=== PATIENT | male | born 1955 | race Caucasian/White ===

== ENCOUNTER 2023-04-01 13:02 | Emergency (ER) | payer MEDICARE, OTHER, SELFPAY ==
[2023-04-01 13:12] VITALS: BP 146/87
[2023-04-01 13:28] LABS: % Basophils 1.6 % (0-2); % Eosinophils 4.3 % (0-6); % Lymphocytes 30.5 % (20.5-51.1); % Monocytes 13.4 % (1.7-9.3); % Neutrophils 50.2 % (42.2-75.2); Absolute Basophils 0.1 10^3/uL (0-0.2); Absolute Eosinophils 0.2 10^3/uL (0-0.7); Absolute Lymphocytes 1.7 10^3/uL (1.2-3.4); Absolute Monocytes 0.8 10^3/uL (0.1-0.6); Absolute Neutrophils 2.8 10^3/uL (1.4-6.5); Hematocrit 41.6 % (39.0-52.0); Hemoglobin 14.9 g/dL (13.0-18.0); Mean Corp Hgb Conc. 35.8 g/dL (33.0-37.0); Mean Corpuscular Hgb 31.7 pg (27.0-31.0); Mean Corpuscular Volume 88.5 fL (80.0-94.0); Mean Platelet Volume 9.8 fL (7.4-10.4); Nucleated Red Blood Cells % 0 % (-); Platelet Count 213 10^3/uL (130-400); Red Cell Dist. Width 13.7 % (11.5-14.5); White Blood Cell Count 5.6 10^3/uL (4.8-10.8)
[2023-04-01 13:39] LABS: ALT (SGPT) 28 U/L (0-50); AST (SGOT) 26 U/L (17-59); Albumin 3.9 g/dl (3.5-5.0); Alkaline Phosphatase 83 U/L (38-126); Blood Urea Nitrogen 18 mg/dl (9-20); Calcium 9.3 mg/dl (8.4-10.2); Carbon Dioxide 25 mmol/L (22-30); Chloride 106 mmol/L (98-107); Glucose 124 mg/dl (70-99); Potassium 4.1 mmol/L (3.5-5.1); Sodium 135 mmol/L (135-145); Total Bilirubin 0.6 mg/dl (0.2-1.3); Total Protein 6.8 g/dl (6.3-8.2); eGFR > 60.00
[2023-04-01 13:47] VITALS: BMI 32.4
[2023-04-01 13:50] LABS: NT-proBNP 88.7 pg/ml; Troponin I < 0.012 ng/ml
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
[2023-04-01 15:46] VITALS: BP 144/88
[2023-04-01] MEDS: LOW STRENGTH ASPIRIN 324 MG PO (15:47)
[2023-04-01 16:30] LABS: Troponin I < 0.012 ng/ml
[2023-04-01 17:00] VITALS: BP 148/94
== END 2023-04-01 17:33 | disposition home or self-care (01) ==
LOC: EMR 13:02
PROVIDERS: Emergency Medicine; CONSULT PHYSICIAN Internal Medicine Cardiovascular Disease; EMERGENCY PHYSICIAN Emergency Medicine; FAMILY PHYSICIAN Internal Medicine
DX: R06.02 Shortness of breath (principal); R00.2 Palpitations; R07.89 Other chest pain; R42 Dizziness and giddiness; M54.9 Dorsalgia, unspecified; F41.9 Anxiety disorder, unspecified; E78.00 Pure hypercholesterolemia, unspecified; M51.36 Other intervertebral disc degeneration, lumbar region; I10 Essential (primary) hypertension; I34.0 Nonrheumatic mitral (valve) insufficiency; G89.29 Other chronic pain; M10.9 Gout, unspecified; K57.92 Diverticulitis of intestine, part unspecified, without perforation or abscess without bleeding; F17.290 Nicotine dependence, other tobacco product, uncomplicated; Z79.82 Long term (current) use of aspirin
CPT/HCPCS: 99285; 71046; 80053; 83880; 84484; 85025; 93005; 93306

== ENCOUNTER 2023-04-16 09:16 | Emergency (ER) | payer MEDICARE, OTHER, SELFPAY ==
[2023-04-16 09:23] VITALS: BP 141/92
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
[2023-04-16 10:32] LABS: % Basophils 1.3 % (0-2); % Eosinophils 3.3 % (0-6); % Immature Granulocytes 0.2 % (0-0.5); % Lymphocytes 21.8 % (20.5-51.1); % Monocytes 8.9 % (1.7-9.3); % Neutrophils 64.5 % (42.2-75.2); Absolute Basophils 0.1 10^3/uL (0-0.2); Absolute Eosinophils 0.2 10^3/uL (0-0.7); Absolute Lymphocytes 1.2 10^3/uL (1.2-3.4); Absolute Monocytes 0.5 10^3/uL (0.1-0.6); Absolute Neutrophils 3.5 10^3/uL (1.4-6.5); Hematocrit 41.6 % (39.0-52.0); Mean Corp Hgb Conc. 36.1 g/dL (33.0-37.0); Mean Corpuscular Hgb 31.7 pg (27.0-31.0); Mean Corpuscular Volume 87.9 fL (80.0-94.0); Mean Platelet Volume 9.7 fL (7.4-10.4); Nucleated Red Blood Cells % 0 % (-); Platelet Count 246 10^3/uL (130-400); Red Blood Cell Count 4.73 10^6/uL (4.70-6.10); Red Cell Dist. Width 13.7 % (11.5-14.5); White Blood Cell Count 5.4 10^3/uL (4.8-10.8)
[2023-04-16 10:48] LABS: ALT (SGPT) 30 U/L (0-50); AST (SGOT) 29 U/L (17-59); Albumin 4.1 g/dl (3.5-5.0); Alkaline Phosphatase 98 U/L (38-126); Blood Urea Nitrogen 16 mg/dl (9-20); Calcium 9.3 mg/dl (8.4-10.2); Carbon Dioxide 24 mmol/L (22-30); Chloride 105 mmol/L (98-107); Glucose 122 mg/dl (70-99); Potassium 4.1 mmol/L (3.5-5.1); Sodium 136 mmol/L (135-145); Total Bilirubin 0.9 mg/dl (0.2-1.3); eGFR > 60.00
[2023-04-16 10:58] LABS: NT-proBNP 22.9 pg/ml; Troponin I < 0.012 ng/ml
[2023-04-16 11:00] VITALS: BP 129/85
[2023-04-16 11:49] VITALS: BP 125/81
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
[2023-04-16 12:33] VITALS: BP 136/89
== END 2023-04-16 13:15 | disposition home or self-care (01) ==
LOC: EMR 09:16
PROVIDERS: Nurse Practitioner; EMERGENCY PHYSICIAN Emergency Medicine; FAMILY PHYSICIAN Internal Medicine
DX: R07.89 Other chest pain (principal); R06.00 Dyspnea, unspecified; I10 Essential (primary) hypertension; E78.00 Pure hypercholesterolemia, unspecified; I38 Endocarditis, valve unspecified; F41.8 Other specified anxiety disorders; I34.0 Nonrheumatic mitral (valve) insufficiency; K21.9 Gastro-esophageal reflux disease without esophagitis; N40.0 Benign prostatic hyperplasia without lower urinary tract symptoms; F17.290 Nicotine dependence, other tobacco product, uncomplicated; Z86.73 Personal history of transient ischemic attack (TIA), and cerebral infarction without residual deficits
CPT/HCPCS: 99283; 71046; 80053; 83880; 84484; 85025; 93005

== ENCOUNTER 2023-04-21 05:50 | Day surgery (SDC) | payer MEDICARE, OTHER, SELFPAY ==
[2023-04-21] VITALS (8 sets, daily range): BP systolic 118–155; BP diastolic 81–94; BMI 32.1
[2023-04-21] MEDS: LOW STRENGTH ASPIRIN 81 MG PO (06:50)
[2023-04-21] MEDS: NSS 287 ML IV (06:59)
--- NOTE | 2023-04-21 08:15 | ITS.CL.CATH ---
Director Of Scientific Research - Catheterization
Cardiac Catheterization
Procedure Report:
CARDIAC CATHETERIZATION REPORT
Date of Procedure: 04/21/2023
Referring:Antonio Mcintyre MD
HEMODYNAMIC DATA
AO: 143/88
LV: 143/20
LEFT VENTRICULOGRAPHY: Normal left ventricular wall motion with EF 64%. There is 3+ (moderate to severe) mitral regurgitation
CORONARY ANGIOGRAPHY
Dominance: Right
Left Main: Cloacal
LAD: Normal
Circumflex: Normal
RCA: Normal dominant vessel
Closure Device: None-the procedure was performed via the right radial artery. The Claus's test was normal prior to the procedure.
Radiation (mGy): 225
DAP (cm2.Gy): 16.3
Fluoroscopy time: 2.7 minutes
CONCLUSIONS
1: Mildly elevated LVEDP
2: Normal left ventricular function with EF 64%
3. Moderate to severe mitral regurgitation
4. Normal coronary arteries
5. This patient has exertional dyspnea as his primary complaint. TTE suggests mild to moderate eccentric mitral regurgitation. Left ventriculography suggests moderate to severe mitral regurgitation. A BRIAN will be needed to further assess the
degree of mitral regurgitation and decide whether corrective mitral valve surgery is appropriate
Copy to: Antonio Mcintyre MD, Jesus Manuel Rodriguez DO
Romeo Alvarado MD, [facility], [facility]
== END 2023-04-21 11:00 | disposition home or self-care (01) ==
LOC: CATH 05:50
PROVIDERS: ATTENDING PHYSICIAN Internal Medicine Cardiovascular Disease; FAMILY PHYSICIAN Internal Medicine; OTHER PHYSICIAN Internal Medicine Cardiovascular Disease
DX: I34.0 Nonrheumatic mitral (valve) insufficiency (principal); R06.09 Other forms of dyspnea; I10 Essential (primary) hypertension; K21.9 Gastro-esophageal reflux disease without esophagitis
CPT/HCPCS: 93458; C1894; Q9967

== ENCOUNTER → 2023-05-03 08:30 | Day surgery (SDC) | payer MEDICARE, OTHER, SELFPAY ==
[2023-05-03 09:30] VITALS: BMI 32.1
== END ==
LOC: CATH 08:30
PROVIDERS: ATTENDING PHYSICIAN Internal Medicine Cardiovascular Disease; FAMILY PHYSICIAN Internal Medicine
DX: I34.0 Nonrheumatic mitral (valve) insufficiency (principal); I10 Essential (primary) hypertension; R06.09 Other forms of dyspnea; Z86.73 Personal history of transient ischemic attack (TIA), and cerebral infarction without residual deficits; Z87.891 Personal history of nicotine dependence; Z79.82 Long term (current) use of aspirin
CPT/HCPCS: 93312; 93320; 93325

== ENCOUNTER → 2023-05-09 13:01 | Outpatient (REF) | payer MEDICARE, OTHER, SELFPAY | LOC: RAD 13:01 | PROVIDERS: ATTENDING PHYSICIAN Thoracic Surgery (Cardiothoracic Vascular Surgery); FAMILY PHYSICIAN Internal Medicine | DX: I34.0 Nonrheumatic mitral (valve) insufficiency (principal) | CPT/HCPCS: 71275; 74174; Q9967 ==

== ENCOUNTER 2023-05-17 04:57 | Inpatient (IN) | payer MEDICARE, OTHER, SELFPAY ==
[2023-05-10 12:13] VITALS: BMI 32.0
[2023-05-10 12:41] LABS: % Basophils 1.7 % (0-2); % Immature Granulocytes 0.2 % (0-0.5); % Lymphocytes 27.5 % (20.5-51.1); % Monocytes 12.2 % (1.7-9.3); % Neutrophils 52.4 % (42.2-75.2); Absolute Basophils 0.1 10^3/uL (0-0.2); Absolute Eosinophils 0.3 10^3/uL (0-0.7); Absolute Lymphocytes 1.4 10^3/uL (1.2-3.4); Absolute Monocytes 0.6 10^3/uL (0.1-0.6); Absolute Neutrophils 2.7 10^3/uL (1.4-6.5); Hematocrit 43.5 % (39.0-52.0); Hemoglobin 15.4 g/dL (13.0-18.0); Mean Corp Hgb Conc. 35.4 g/dL (33.0-37.0); Mean Corpuscular Hgb 31.8 pg (27.0-31.0); Mean Corpuscular Volume 89.7 fL (80.0-94.0); Mean Platelet Volume 9.6 fL (7.4-10.4); Nucleated Red Blood Cells % 0 % (-); Platelet Count 240 10^3/uL (130-400); Red Blood Cell Count 4.85 10^6/uL (4.70-6.10); Red Cell Dist. Width 13.6 % (11.5-14.5); White Blood Cell Count 5.2 10^3/uL (4.8-10.8)
[2023-05-10 12:42] LABS: Urine Albumin 1+ (Neg - Trace); Urine Bilirubin Negative (Negative); Urine Character Clear (Clear); Urine Color Yellow; Urine Glucose Negative (Negative); Urine Ketone Negative (Negative); Urine Leukocyte Trace (Negative); Urine Nitrite Negative (Negative); Urine Occult Blood 3+ (Negative); Urine Urobilinogen Negative (Neg - 1+)
[2023-05-10 12:51] LABS: Urine Mucus Few; Urine Squamous Cell 0-2 /LPF (Few)
[2023-05-10 12:52] LABS: Urine Bacteria Moderate (Negative); Urine White Cell 0-2 /HPF (0-5)
[2023-05-10 12:59] LABS: APTT 30.3 Sec (23.4-35.0); INR 0.99; PT 12.9 Sec (11.4-14.6)
[2023-05-10 13:42] LABS: ALT (SGPT) 37 U/L (0-50); AST (SGOT) 29 U/L (17-59); Albumin 4.4 g/dl (3.5-5.0); Alkaline Phosphatase 91 U/L (38-126); Blood Urea Nitrogen 22 mg/dl (9-20); Calcium 9.9 mg/dl (8.4-10.2); Carbon Dioxide 25 mmol/L (22-30); Chloride 103 mmol/L (98-107); Estimated Creatinine Clearance 68 ml/min; Glucose 103 mg/dl (70-99); Potassium 4.6 mmol/L (3.5-5.1); Sodium 136 mmol/L (135-145); Total Bilirubin 0.7 mg/dl (0.2-1.3); Total Protein 7.2 g/dl (6.3-8.2); eGFR > 60.00
[2023-05-10 13:56] LABS: Glycohemoglobin (HgbA1c) 5.7 % (4.0-5.6)
[2023-05-17] VITALS (20 sets, daily range): BP systolic 79–141; BP diastolic 61–90; BMI 32.0
[2023-05-17] MEDS: BACTROBAN 2% OINTMENT 1 APPLIC NASAL ×2 (06:15→20:30)
[2023-05-17] MEDS: MAGNESIUM OXIDE 500 MG PO (06:16)
[2023-05-17] MEDS: PROTONIX 40 MG PO (06:16)
[2023-05-17] MEDS: LOPRESSOR 25 MG PO (06:16)
--- NOTE | 2023-05-17 06:20 | PTCARENOTE ---
Patient arrived to room 2261 with security strategist. Patient A+A+Ox3. No neurological deficits noted. Steady gait. Patient with no c/o pain or discomfort. Patient confirmed NPO after midnight. Patient confirmed taking 4% Chlorhexidine shower
last night and this morning. Patient clipped and prepped per protocol. G wipes. Admission questions and medication reconciliation completed. Pre-Op medications administered. I.S. 2000 ml. Heart pillow purpose explained. Dr. Alanis arrived and
spoke with patient. fiscal assistant to CVOR.
--- NOTE | 2023-05-17 06:35 | W.CVOR.SURPR ---
CVOR Surgeon Immed Pre Op
-
I have examined this patient prior to performance of the scheduled procedure.
The patient's condition is unchanged from the time of the dictated/written History and
Physical and the patient is able to undergo the scheduled procedure.
HP MV Repair. Will manage PAIGE at time of surgery. Denies an official diagnosis of atrial fibrillation but does state that he felt short rapid palpitations.
[id number] Score for Atrial Fibrillation Stroke Risk
5 points
Stroke risk was 7.2% per year in >90,000 patients (the [place] Atrial Fibrillation Cohort Study) and 10.0% risk of stroke/TIA/systemic embolism.
INPUTS:
Age �> 1 = 65-74
Sex �> 0 = Male
CHF history �> 1 = Yes
Hypertension history �> 1 = Yes
Stroke/TIA/thromboembolism history �> 2 = Yes
Vascular disease history (prior ME, peripheral artery disease, or aortic plaque) �> 0 = No
Diabetes history �> 0 = No
[2023-05-17 07:15] LABS: ACT+ - POC 101 Seconds (82-134)
[2023-05-17 07:19] LABS: B.E. - POC -2.8 mmol/L; Glucose - POC 104 mg/dl (65-99); HCO3 - POC 23 mmol/L (21-29); Hematocrit - POC 40 % PCV (42-52); Hemodilution- POC Yes; Hemoglobin Calculated - POC 13.6; Ionized Calcium - POC 1.22 mmol/L (1.12-1.27); O2 Saturation %Calculated-POC 97.7 5 (92-96); PCO2 - POC 45 mmHg (35-45); PO2 - POC 108 mmHg (80-100); Potassium - POC 3.6 mmol/L (3.6-5.0); Sodium - POC 141 mmol/L (135-145); pH - POC 7.33 (7.35-7.45)
[2023-05-17 07:36] LABS: Urine Albumin 1+ (Neg - Trace); Urine Bilirubin Negative (Negative); Urine Character Clear (Clear); Urine Color Yellow; Urine Glucose Negative (Negative); Urine Ketone Negative (Negative); Urine Leukocyte Negative (Negative); Urine Nitrite Negative (Negative); Urine Occult Blood 3+ (Negative); Urine Urobilinogen Negative (Neg - 1+)
[2023-05-17 08:02] LABS: Urine Hyaline Cast 0-2 /LPF (0-2)
[2023-05-17 08:03] LABS: Urine Bacteria Few (Negative)
--- NOTE | 2023-05-17 08:04 | W.PN.CD ---
Today's Communication / Plan
-
Surgery this morning.
Impression / Plan
-
Impression/Plan: 68 y/o male with HTN, TIA and severe primary mitral regurgitation admitted for elective mitral valve repair and LAAL (+/- MAZE).
#Primary mitral regurgitation
-For MV repair today.
-Anticipate routine postoperative management.
#Hypertension
-Chronic, stable.
-Monitor post-op.
#TIA
-Likely LAAL, +- MAZE today.
-Resume aspirin.
-No definitive evidence of PAF.
Subjective/Interval History:
In surgery this morning.
DATA:
CT C/A/P, 05/09/2023:
IMPRESSION:
1. No significant calcification of the mitral valve. Aortic valve is tricuspid.
2. Minimal left basilar subsegmental atelectasis, otherwise clear lungs.
3. Mild calcification of the proximal LAD. Please correlate with symptoms of and risk factors for coronary artery disease, with further workup as clinically appropriate.
4. Colonic diverticulosis without evidence of diverticulitis.
05/03/2023:
CONCLUSIONS
Normal LV size and function with no regional wall motion abnormalities.
Estimated LV EF of 60-65%.
No LVH.
Normal right ventricular size and function.
Prolapse with likely partial flail P1/P2 scallop of the posterior leaflet with
severe eccentric anteriorly directed regurgitation with Coanda effect.
Systolic flow reversal (suggestive of severe MR) in the pulmonary veins.
Compared to prior from April 01, 2023, mitral regurgitation is better
visualized on today's study and is likely severe with systolic flow reversal
seen in the pulmonary veins.
Cardiac Catheterization, 04/21/2023:
CORONARY ANGIOGRAPHY
Dominance: Right
Left Main: Cloacal
LAD: Normal
Circumflex: Normal
RCA: Normal dominant vessel
CONCLUSIONS
1: Mildly elevated LVEDP
2: Normal left ventricular function with EF 64%
3. Moderate to severe mitral regurgitation
4. Normal coronary arteries
Physical Exam
Vital Signs/Labs
Vital Signs
Temp Pulse Resp BP Pulse Ox
37.0 C 89 16 134/89 97
05/17/23 05:34 05/17/23 06:16 05/17/23 05:34 05/17/23 06:16 05/17/23 05:34
05/15/23 05/16/23 05/17/23
11:59 11:59 11:59
Actual Weight 95.3 kg
05/10/23 12:25
05/10/23 12:25
PT 12.9 Sec (11.4-14.6) 05/10/23 12:25
INR 0.99 05/10/23 12:25
APTT 30.3 Sec (23.4-35.0) 05/10/23 12:25
Physical Exam
Exam deferred.
Data Reviewed
-
Date of Service: May 17, 2023
Medical Decision Making: Reviewed Test Results, Independent Historian Assessment, Test Interpretation and Review of Case with other Provider
EKG: Tracing Personally Visualized and interpreted and Report Reviewed by me
Echo: Report Reviewed by me
X-Ray/CT/US/MRI/NUC/PET: Image Personally Visualized and interpreted and Report Reviewed by me
Medical Tests (PFT, Pathology etc): Report Reviewed by me
Labs: Labs Reviewed by me
Old Records: Reviewed
[2023-05-17 08:43] LABS: ACT+ - POC 794 Seconds (82-134)
[2023-05-17 09:07] LABS: B.E. - POC 1.3 mmol/L; Glucose - POC 125 mg/dl (65-99); HCO3 - POC 25 mmol/L (21-29); Hematocrit - POC 31 % PCV (42-52); Hemodilution- POC Yes; Hemoglobin Calculated - POC 10.4; Ionized Calcium - POC 1.01 mmol/L (1.12-1.27); O2 Saturation %Calculated-POC 99.9 5 (92-96); PCO2 - POC 36 mmHg (35-45); PO2 - POC 269 mmHg (80-100); Potassium - POC 5.3 mmol/L (3.6-5.0); Sodium - POC 135 mmol/L (135-145); pH - POC 7.45 (7.35-7.45)
[2023-05-17 09:21] LABS: ACT+ - POC 920 Seconds (82-134)
[2023-05-17 09:42] LABS: B.E. - POC -0.7 mmol/L; Glucose - POC 164 mg/dl (65-99); HCO3 - POC 25 mmol/L (21-29); Hematocrit - POC 37 % PCV (42-52); Hemodilution- POC Yes; Hemoglobin Calculated - POC 12.6; Ionized Calcium - POC 1.06 mmol/L (1.12-1.27); O2 Saturation %Calculated-POC 99.6 5 (92-96); PCO2 - POC 45 mmHg (35-45); PO2 - POC 183 mmHg (80-100); Potassium - POC 5.7 mmol/L (3.6-5.0); Sodium - POC 135 mmol/L (135-145); pH - POC 7.36 (7.35-7.45)
[2023-05-17 09:50] LABS: ACT+ - POC 772 Seconds (82-134)
[2023-05-17 10:10] LABS: B.E. - POC -2.1 mmol/L; Glucose - POC 138 mg/dl (65-99); HCO3 - POC 22 mmol/L (21-29); Hematocrit - POC 36 % PCV (42-52); Hemodilution- POC Yes; Hemoglobin Calculated - POC 12.2; Ionized Calcium - POC 1.05 mmol/L (1.12-1.27); O2 Saturation %Calculated-POC 99.9 5 (92-96); PCO2 - POC 36 mmHg (35-45); PO2 - POC 352 mmHg (80-100); Potassium - POC 4.9 mmol/L (3.6-5.0); Sodium - POC 138 mmol/L (135-145)
[2023-05-17 10:18] LABS: ACT+ - POC 753 Seconds (82-134)
[2023-05-17 11:13] LABS: ACT+ - POC 107 Seconds (82-134)
[2023-05-17 11:16] LABS: B.E. - POC -6.2 mmol/L; Glucose - POC 133 mg/dl (65-99); HCO3 - POC 21 mmol/L (21-29); Hematocrit - POC 35 % PCV (42-52); Hemodilution- POC Yes; Hemoglobin Calculated - POC 11.8; Ionized Calcium - POC 1.28 mmol/L (1.12-1.27); O2 Saturation %Calculated-POC 95.7 5 (92-96); PCO2 - POC 50 mmHg (35-45); PO2 - POC 94 mmHg (80-100); Sodium - POC 140 mmol/L (135-145); pH - POC 7.24 (7.35-7.45)
--- NOTE | 2023-05-17 11:38 | CM ---
Chart reviewed. Patient is in the OR today. Plan is for the patient to return home with CT Transitional RN. MARC to follow
Patiient in seen PAT.
Met with Mr. Jackson in [facility]. He states prior to admission he resides alone in a one story home without any steps to enter. He states prior to admission he was independent with ambulation and adls. He states he does not have any DME in the
home. He states he has a prescription and uses [facility]. He states his niece resides on the property in another home. He states his brothers and sister maybe available to check on him when he goes home. The discharge plan is to return home
with family checking on him and a home visit by the Cardiothoracic Transitional Care Nurse when medically stable.
We reviewed pre-op and post-op routines. We reviewed the shower instructions. He has the soap, written instructions and the Cardiothoracic Surgery Educational Booklet. We also reviewed restrictions including lifting and driving restrictions. We
also discussed a home visit by the Cardiothoracic Transitional Care Nurse. He is agreeable to a home visit. The plan is for Mitral Valve repair on Wednesday, May 17, 2023.
--- NOTE | 2023-05-17 12:05 | PTCARENOTE ---
pt received into room 2261 s/p CVOR. pt intubated via ETT. POX 70's. STAGE RIGGER an CT PA at bedside. EET adjusted, POX improved to 95%. vent set to SIMV 16/600/100%/5/5. B/L breath sound present. CXR completed. pt sedated. SR/SB on monitor. EKG completed.
pt hypotensive. Levo gtt and Dobut gtt infusing. epicardial pacer turned on per CT PA, set to VVI 80, mA 10; rate now @ back up of 50. BP improved, Levo gtt weaned down. B/L radial and DP pulses palpable. heart tones clear. RIJ cordis and swan
intact w KVOs infusing. CI 1.89. PAPs ~30's/10's. CVP ~10. arizmendi catheter intact, draining clear yellow urine. CT x2 intact, connected to -20cm wall suction, drainage WNL, no air leak present. hypoactive bowel sounds present. insulin gtt infusing
per glycemic protocol. labs drawn and sent. elisha hugger placed for core temp 96.6. all surgical sites stable. see worklist for full assessment, VS, and interventions.
--- NOTE | 2023-05-17 12:19 | W.PN.CT.SURG ---
CT Surgery Operative Note
-
CARDIAC SURGERY OPERATIVE REPORT
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
Postoperative Diagnosis: Same
Procedure(s) Performed:
1. Right mini thoracotomy with right common femoral artery and vein cannulation under BRIAN guidance
2. Radical mitral valve repair (triangular section of P1 P2, imbrication of P1 to P2, 28 mm band anoplasty)
3. Placement temporary ventricular pacing wires
4. Trans esophageal echocardiography
5. Left atrial appendage exclusion with a 35 mm clip
Date of Surgery: 05/17/2023
Comorbidities:
1. Severe mitral valve insufficiency secondary to type II pathology
2. COPD, history of tobacco abuse
3. Hypertension
4. Hyperlipidemia
5. GERD
6. Morbidly obese
7. History of acute kidney dysfunction
8. BPH
9. Questionable history of TIA and FL
Attending Surgeon: Mauricio Alanis MD, MS
Assistants: Ketty Briggs PA-C (present and necessary for retraction, suctioning, exposure, suture management, wound closure, etc. under my direction)
Anesthesiology: Turner Dunn MD and Jeny Allen CRNA
Scrub and Circulating RNs: Brenda Wells, FRANKIE, Beatris Cleveland, FRANKIE
Slot Key Person: Leonila Aaron CCP
Anesthesia: GETA
EBL: per perfusion records
Products: None
CPB Time: 121 minutes
Aortic Cross Clamp Time: 83 minutes
Indication(s) for Procedures: This is a 68-year-old male who recent developed symptoms of fatigue and shortness of breath with light exertion. He has known mitral valve insufficiency secondary to flail/prolapse segment at P1 P2. Due to his
symptoms and severe mitral valve insufficiency, he met criteria for mitral valve repair. He accepted the risk for surgery and so we proceeded.
Mitral Valve Description: Relatively normal-appearing leaflets, flail segment at P1 P2 mildly dilated annulus, short anterior leaflet at approximately 24 mm.
Implants:
1. 28mm SCHROEDER PhysioFlex, SN [id number]
2. 35mm Pro 2 Clip, SN [id number]
Specimen:
None
Findings: His preoperative left ventricular action fraction was approximate 60% with no regional wall motion abnormalities. Following surgery his EF remained the same at approximately 50% although his RV was a little bit sluggish coming off
cardiopulmonary bypass. He also required significant recruitment from a pulmonary standpoint and was hypoxic. After some inotropic support and recruitment maneuvers his oxygen saturations improved. His left ventricular function postoperatively
was the same with no new regional wall motion abnormalities. His mitral valve was repaired by a triangular resection of a focal segment of prolapse and flail between P1 P2 and his annulus was reinforced with 10 nonpledgeted 2 Ethibond sutures or
knots and a 28 mm band annuloplasty. After coming off cardiopulmonary bypass there is no residual mitral valve insufficiency, no systolic anterior motion, and a mean gradient across the valve was 3 mmHg. His cardiac index on low-dose dobutamine
was 1.8-1.9 which had improved from 1.5 preoperatively. Of note, he likely has more severe COPD than anticipated, he required significant recruitment maneuvers intraoperatively. No products were given and he regained sinus rhythm after a short
period of ventricular pacing. The left atrial appendage was verified to be free of any thrombus or debris preoperatively and found to be totally occlusive postoperatively.
Description of Procedure: The patient was brought to the operating room and placed supine in the table with their right side bumped up and right arm down. Arterial and central access was performed by anesthesiology. The patient was prepped from chin
to toes in the typical sterile fashion. Trans esophageal evaluation of cardiac function and all valvular structures was conducted. Before commencing, a time out was performed by all members of the team. All were in agreement with the procedure and
laterality and I proceeded. A small right groin incision was made to expose the common femoral artery and vein. A total of 48,000 units of heparin was given. A 5-6 cm right lateral thoracotomy was performed over the 4th intercostal space verified by
visualization of the hilum. The common femoral artery and vein were cannulated under transesophageal guidance using open Seldinger technique. The arterial line was verified to have an appropriate bounce and pressure correlating with testing. Once
the ACT was above 400, retrograde autologous priming was done and we commenced cardiopulmonary bypass. Target core temperature was 34�C.
Carbon dioxide was used to flood the field. The course of the phrenic nerve was identified to prevent injury. The pericardium was opened and two stay sutures were placed to facilitate a ``pericardial table.�� The oblique sinus was developed followed
by the inter atrial groove. An antegrade root vent was inserted and secured with a pursestring suture. The pump flow and mean arterial pressure were lowered and an aortic cross clamp was applied to the ascending aorta. A total of 1.2L initial dose
of Antegrade cardioplegia was delivered. We had rapid electro myocardial quiescence at 300cc of cardioplegia. The ventricle was monitored for distension by echocardiogram during this time. The left atrium was incised and enlarged. A left atrial lift
retractor was placed. The mitral valve was inspected. The mitral valve was repaired as described above. The left atrial appendage was then accessed via the transverse sinus and sized to a 35 mm clip. The clip was deployed under direct vision
across the left atrial appendage and verified inside the atrium to be totally occlusive at the base. The left atriotomy was closed with 3-0 prolene in a running fashion leaving a ventricular vent in place to de-air. After filling the heart, the
vent was removed and the prolene was secured with a corknot. Unipolar ventricular pacing wire was placed on the base of the right ventricle. The patient was placed into Trendelenburg position and pump flows were lowered. The clamp was slowly
removed with the root vent turned on. De-airing maneuvers were performed. We started to rewarm with a target of 36.5�C.
As the heart recovered, the mitral valve and ventricular function were assessed under transesophageal echocardiogram. The LV vent and root vents were removed. Once weaning parameters were satisfactory, cardiopulmonary bypass flow was lowered until
we were off cardiopulmonary bypass the mitral valve was inspected again. All surgical sites were inspected for hemostasis and appeared appropriate. The lines were clamped and the arterial was relocated to the venous cannula to give back volume. A
test dose of protamine was delivered and patient was monitored for any adverse reactions followed by complete protamine dosing. The femoral vessels were decannulated and repaired as indicated. The pericardium was approximated with 2-0 ethibond
sutures secured with corknots. One 19F Emmanuel drain remained in the pleural space and one 24F emmanuel drain in the pericardium. There was an excellent palpable distal to the SYSTEM SAFETY MANAGER cannulation site. Local analgesia was injected to the thoracotomy. The rib
space was approximated with #2 ethibond suture. The incision was closed in layers in a running fashion.
All instrument, sponge, and needle counts were confirmed to be correct x 2 at the end of the operation. The patient was transferred to the cardiac intensive care unit in critical but stable condition.
I, Dr. Mauricio Alanis, was present, scrubbed for, and performed all critical elements of this procedure.
Mauricio Alanis MD, MS
Cardiothoracic Surgeon
[facility]
This dictation was created using the [employer] dictation system. Please excuse any grammatical, typographical, or 'sound alike' errors
[2023-05-17 12:26] LABS: Glucose - Point of Care 134 mg/dl (70-99)
[2023-05-17] MEDS: ANCEF 10 IV ×2 (12:32→12:33)
[2023-05-17 12:58] LABS: B.E. -5.7 mmol/L; HCO3 20.7 mmol/L (21-28); Ionized Calcium 1.16 mMOL/L (1.15-1.33); O2 Saturation % 82.6 % (94-98); PCO2 43 mmHg (35-48); Potassium 4.3 mMOL/L (3.5-5.1); Sodium 134 mMOL/L (136-145); pH 7.29 (7.35-7.45)
[2023-05-17 13:01] LABS: Hematocrit 33.7 % (39.0-52.0); Hemoglobin 11.8 g/dL (13.0-18.0); Platelet Count 163 10^3/uL (130-400)
[2023-05-17 13:03] LABS: PO2 53 mmHg (83-108)
[2023-05-17 13:05] LABS: Glucose - Point of Care 127 mg/dl (70-99)
[2023-05-17] MEDS: NSS 500 IV (13:07)
[2023-05-17] MEDS: CYMBALTA DELAYED RELEASE PO ×3 (13:07→20:38)
[2023-05-17] MEDS: LIPITOR PO (13:07)
[2023-05-17] MEDS: NEURONTIN PO ×2 (13:07→16:07)
[2023-05-17] MEDS: VITAMIN C PO (13:08)
[2023-05-17] MEDS: NOVOLOG FLEXPEN SC ×2 (13:08→16:08)
[2023-05-17 13:13] LABS: APTT 34.4 Sec (23.4-35.0)
[2023-05-17 13:19] LABS: Blood Urea Nitrogen 21 mg/dl (9-20); Estimated Creatinine Clearance 58 ml/min; Glucose 129 mg/dl (70-99); Magnesium 3.3 mg/dl (1.6-2.3)
--- NOTE | 2023-05-17 13:33 | W.PN.UPDATE ---
Update Note
Progress Note Update
S/P radical mitral valve repair (triangular section of P1 P2, imbrication of P1 to P2, 28 mm band anoplasty)
EKG abnormal (transient ST elevation and 2:1 heart block) but was performed during hypoxia.
Now hemodynamically stable on dobutamine 0.3. Update EKG.
[2023-05-17 13:43] LABS: HCO3 19.8 mmol/L (21-28); Ionized Calcium 1.15 mMOL/L (1.15-1.33); O2 Saturation % 96.9 % (94-98); PCO2 35 mmHg (35-48); PO2 79 mmHg (83-108); Potassium 4.7 mMOL/L (3.5-5.1); Sodium 135 mMOL/L (136-145); pH 7.36 (7.35-7.45)
[2023-05-17 13:46] LABS: Mixed Venous O2 Saturation 50.5 %
[2023-05-17 14:04] LABS: Glucose - Point of Care 119 mg/dl (70-99)
[2023-05-17] MEDS: TYLENOL PO (14:20)
--- NOTE | 2023-05-17 14:27 | W.PN.UPDATE ---
Update Note
Progress Note Update
68 y/o male with progressive SOB presented on 05/16 for elective MVrepair with Dr. Alanis.
IV fluids: 2200
U.O.:� 200
UF:� 4100
Blood:� None
Wires:� V-wires
Inotropes:� Dobutamine
Pressors:� Levophed
Sedatives:� Precedex
�
NEURO: sedated on precedex, pupils +3mm B/L
RESP: #8OT @24 16/500/100%/8 Lungs clear B/L. 2 mediastinal (5)and pleural (15) chest tubes to -20cm suction. Sanguineous drainage
CV: RRR +S1, S2, no S3, no�rub, no murmur. Dermabond to median sternotomy. RIJ w/Bessemer locked @ 45cm. PA 45/22; CVP 11; C.O 3.8/CI 1.8
ABD: round, soft, no BS
EXT: no edema, +2/4 DP pulses B/L, no femoral bruit,
: Soriano with clear yellow urine
�
A/P: POD #0 s/p Radical mitral valve repair (triangular section of P1 P2, imbrication of P1 to P2, 28 mm band anoplasty)
BRIAN: EF�55-60%
- wean and extubate
>>once tolerating PO can start ASA
- Wean levo for MAPs >65
- Continue dobutamine for CI >2.0
- Monitor CT output and UOP
- f/u of labs, ABG, and MVO2
- Ekg pending
- Will need pre-DC TTE
- Cardiology consulted.
# acute surgical blood loss anemia-expected
- trend CBC
- Continue IV Iron and vit C
#Ventilator dependent respiratory failure
- trend ABG and wean FIO2 as able
- stat CXR and continue daily
�
# Hyperglycemia
- insulin infusion x 24h
�
# Hyperlipidemia
- resume�lipitor 20mg when tolerating PO
--- NOTE | 2023-05-17 14:53 | CON.INTV ---
Consultation
Consultation Request
Date/Time Consultation Requested: 05/17/2023
Date/Time Consultation Performed: 05/17/2023
Requesting Provider: Dr. Alanis
Performing Provider: Dr. Romulo Hampton
Reason for Consultation: Status post mitral valve repair/postoperative ICU care
Medical History
-
History of Present Illness:
68-year-old male with known history of mitral insufficiency was admitted to the hospital for mitral valve repair due to progressive symptoms.
Patient underwent mitral valve repair on 05/17/2023.
Currently in the critical care unit where he is intubated on mechanical ventilation.
Slowly waking up from anesthesia.
On low-dose vasopressors.
Chest tube in place without significant output. No air leak noted.
Records reviewed.
Past Medical History
Past Medical History: Other (See assessment and plan section)
Social History
Tobacco: Former Smoker
Alcohol: Occasional
Personal:
Employment: Other ([id number], Retired due to back injury)
Family History
Family History: Unable to Obtain
Allergies / Home Medications
Allergies
Allergy/AdvReac Type Severity Reaction Status Date / Time
No Known Drug Allergies Allergy Unknown Verified 05/06/23 13:35
Home Medications
�Medication �Instructions �Recorded �Confirmed �Last Taken �Type
vitamin B complex 1 tab PO DAILY Supplement 04/03/19 05/17/23 05/16/23 08:00 History
1 tab
alfuzosin 10 mg tablet,extended 10 mg PO DAILY Urinary Issue 05/20/22 05/17/23 05/16/23 08:00 History
release 24 hr 10 mg
ascorbic acid (vitamin C) 500 mg 500 mg PO DAILY Supplement 05/20/22 05/17/23 05/15/23 08:00 History
tablet (Vitamin C) 500 mg
gabapentin 300 mg capsule 300 mg PO TID PRN Neurological 05/20/22 05/17/23 05/16/23 08:00 History
Condition 300 mg
vitamin E 268 mg (400 unit) capsule 268 mg PO DAILY Supplement 05/20/22 05/17/23 05/16/23 08:00 History
1 capsule
amlodipine 5 mg tablet 10 mg PO DAILY Blood Pressure 01/22/23 05/17/23 05/16/23 08:00 History
5 mg
aspirin 81 mg tablet,delayed 81 mg PO DAILY #90 tabs 04/01/23 05/17/23 05/16/23 08:00 Rx
release 81 mg
duloxetine 20 mg capsule,delayed 20 mg PO BID 04/01/23 05/17/23 05/16/23 08:00 History
release 20 mg
metoprolol succinate 25 mg 12.5 mg (1/2 x 25 mg) PO HS #90 04/01/23 05/17/23 05/02/23 08:00 Rx
tablet,extended release 24 hr tabs
(Toprol XL)
montelukast 10 mg tablet 10 mg PO DAILY 04/01/23 05/17/23 05/16/23 08:00 History
10 mg
pantoprazole 40 mg tablet,delayed 40 mg PO DAILY 04/01/23 05/17/23 05/16/23 08:00 History
release 40 mg
atorvastatin 20 mg tablet 20 mg PO DAILY 05/03/23 05/17/23 05/16/23 08:00 History
20 mg
Review of Systems
-
Unable to Obtain full review of systems at this time due to: Patient Intubation
Vitals / Labs / Diagnostic Testing
Vital Signs
Temp Pulse Resp BP Pulse Ox
97.6 F 70 16 109/82 95
05/17/23 14:00 05/17/23 14:00 05/17/23 14:00 05/17/23 14:00 05/17/23 12:30
Lab Data
05/17/23 12:15
05/17/23 12:15
Laboratory Results
05/17/23 05/17/23
12:15 13:35
PT 18.0 H
INR 1.50
APTT 34.4
pH 7.29 L 7.36
pCO2 43 35
pO2 53 L* 79 L
HCO3 20.7 L 19.8 L
O2 Delivery Level
Diagnostic Testing:
Physical Exam
-
HEENT: Normocephalic
Cardiovascular: S1/S2
Respiratory: Clear and Non-Labored Respirations
GI: Soft and Distended (Obese)
Neurology: Other (Sedated, mechanical ventilation.)
Skin: Warm
General: Respiratory Distress (n)
Assessment
-
Status post radical mitral valve repair via right minithoracotomy
Conditions present prior admission:
Mitral valve insufficiency
History of bilateral broken heels
Anxiety
Hypertension
Mild depression
BPH
Chronic back pain
Obesity
Assessment and plan:
He is doing well postop-currently on mechanical ventilation and appears comfortable.
ABG reviewed: Adequate oxygenation and ventilation.
Continue SIMV mode with no change
Spontaneous breathing trial per protocol once sedation wears off.
Anemia noted-no evidence of acute bleeding
Follow H&H serially
Hemodynamics -acceptable, on low-dose Levophed.
Hopefully can wean off.
Chest tube with no excessive drainage-no air leak.
Chest x-ray reviewed: With no pneumothorax or fluid collections.
Remain nothing by mouth
Head of the bed elevation
Glycemic control per protocol
DVT prophylaxis when safe from the surgical perspective.
Critical care statement: A total of 32 minutes of critical care time was provided for this patient today. This includes management of unstable vital signs, evaluation of the patient at bedside, reviewing the patient's pertinent medical records
including ventilator settings, arterial blood gases, radiographs, microbiology, laboratory evaluations and discussion with primary team, critical care nursing, and respiratory therapy.
[2023-05-17 15:09] LABS: Glucose - Point of Care 122 mg/dl (70-99)
[2023-05-17 15:38] LABS: B.E. -4.7 mmol/L; HCO3 21.6 mmol/L (21-28); Ionized Calcium 1.32 mMOL/L (1.15-1.33); O2 Saturation % 96.8 % (94-98); PCO2 44 mmHg (35-48); PO2 82 mmHg (83-108); Potassium 4.9 mMOL/L (3.5-5.1)
--- NOTE | 2023-05-17 15:50 | PTCARENOTE ---
ABG reviewed w CT PA Stacey. SOLICITOR PATENT @ bedside, pt extubated to 6LNC without incident. POX 92%.
--- NOTE | 2023-05-17 15:50 | RESPNOTE ---
pt extubated to 6lpm of nasal cannula. sats of 90- 91% noted,
[2023-05-17] MEDS: PACERONE PO ×3 (16:07→22:18)
[2023-05-17] MEDS: LOW STRENGTH ASPIRIN 81 MG PO (16:07)
[2023-05-17] MEDS: DILAUDID 0.5 MG IV ×3 (16:08→22:15)
[2023-05-17] MEDS: ZOFRAN 4 MG IV (17:35)
[2023-05-17] MEDS: ANCEF 5 IV (17:35)
[2023-05-17 19:04] LABS: Glucose - Point of Care 114 mg/dl (70-99)
[2023-05-17 19:04] LABS: Glucose - Point of Care 129 mg/dl (70-99)
[2023-05-17 19:07] LABS: Glucose - Point of Care 120 mg/dl (70-99)
[2023-05-17 19:27] LABS: Hematocrit 34.8 % (39.0-52.0); Hemoglobin 12.3 g/dL (13.0-18.0); Platelet Count 173 10^3/uL (130-400)
--- NOTE | 2023-05-17 20:00 | PTCARENOTE ---
Received pt from dayshift; pt resting in bed, complains of 9/10 pain, see MAR for ongoing pain management. Pt is AAOX4; heart sounds audible, radial and DP pulses palpable, trace ANU, epicardial temp V-wires are set to VVI rate 50, MA 10, Mv 2; lung
sounds diminished at b/l bases, spo2 95% on midflow NC 15LPM, right pleural and mediastinal CT to -20 wall suction, no air leaks, no tidaling, no crepitus; hypoactive BS x4 quadrants, abdomen soft non tender; pt voiding clear yellow urine via arizmendi
catheter; surgical sites and dressings maintained; right IJ cordis, swan @45, PIV all maintained, leveled, and zeroed; dobutamine and Levophed infusing; call gates within reach; will continue to monitor.
[2023-05-17] MEDS: DILAUDID 0.25 MG IV (20:20)
[2023-05-17] MEDS: SODIUM BICARBONATE 50 MEQ IV ×2 (20:21→22:55)
[2023-05-17 21:00] LABS: Glucose - Point of Care 136 mg/dl (70-99)
[2023-05-17] MEDS: SENOKOT-S PO (21:02)
[2023-05-17 21:07] LABS: Mixed Venous O2 Saturation 59.9 %
[2023-05-17 21:11] LABS: B.E. -5.2 mmol/L; HCO3 21.6 mmol/L (21-28); Ionized Calcium 1.19 mMOL/L (1.15-1.33); O2 Saturation % 94.2 % (94-98); PCO2 46 mmHg (35-48); PO2 71 mmHg (83-108); Sodium 136 mMOL/L (136-145); pH 7.28 (7.35-7.45)
[2023-05-17 22:03] LABS: Glucose - Point of Care 121 mg/dl (70-99)
[2023-05-17 22:12] LABS: Blood Urea Nitrogen 25 mg/dl (9-20); Calcium 8.6 mg/dl (8.4-10.2); Carbon Dioxide 21 mmol/L (22-30); Chloride 110 mmol/L (98-107); Estimated Creatinine Clearance 51 ml/min; Glucose 125 mg/dl (70-99); Magnesium 2.6 mg/dl (1.6-2.3); Potassium 5.6 mmol/L (3.5-5.1); Sodium 138 mmol/L (135-145); eGFR 47.23
[2023-05-17] MEDS: TYLENOL 1000 MG PO (22:18)
[2023-05-17] MEDS: NEURONTIN 100 MG PO (22:18)
[2023-05-17] MEDS: DEXTROSE 50% SYRINGE 12.5 GRAMS IV (22:49)
[2023-05-17] MEDS: NOVOLIN R 5 UNITS IV (22:50)
[2023-05-17] MEDS: CALCIUM CHLORIDE 10% SYRINGE 500 MG IV (22:56)
[2023-05-17 23:15] LABS: Glucose - Point of Care 191 mg/dl (70-99)
[2023-05-18] VITALS (32 sets, daily range): BP systolic 97–142; BP diastolic 61–98; BMI 33.2
--- NOTE | 2023-05-18 | PTCARENOTE ---
Pt assessment unchanged; NSR on monitor, VSS; midflow O2 increased from 13 to 15 LPM, pt encourage to take deep breaths; ongoing pain management, see MAR; labs drawn, bicarb replaced, [id number] was given to correct elevated K, See MAR;
call gates within reach; will continue to monitor.
[2023-05-18 00:12] LABS: Glucose - Point of Care 133 mg/dl (70-99)
[2023-05-18 01:05] LABS: Glucose - Point of Care 87 mg/dl (70-99)
[2023-05-18] MEDS: ANCEF 5 IV ×2 (01:14→11:03)
[2023-05-18] MEDS: DILAUDID 0.5 MG IV ×6 (01:16→23:54)
[2023-05-18 02:14] LABS: Glucose - Point of Care 136 mg/dl (70-99)
[2023-05-18 03:00] LABS: Glucose - Point of Care 121 mg/dl (70-99)
[2023-05-18 03:05] LABS: Hematocrit 34.3 % (39.0-52.0); Mean Corpuscular Volume 91.5 fL (80.0-94.0); Mean Platelet Volume 10.1 fL (7.4-10.4); Platelet Count 161 10^3/uL (130-400); Red Blood Cell Count 3.75 10^6/uL (4.70-6.10); Red Cell Dist. Width 14.3 % (11.5-14.5); White Blood Cell Count 12.9 10^3/uL (4.8-10.8)
[2023-05-18 03:06] LABS: Ionized Calcium 1.24 mMOL/L (1.15-1.33); O2 Saturation % 97.7 % (94-98); PCO2 48 mmHg (35-48); PO2 87 mmHg (83-108); pH 7.27 (7.35-7.45)
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
[2023-05-18 03:31] LABS: Blood Urea Nitrogen 28 mg/dl (9-20); Carbon Dioxide 22 mmol/L (22-30); Chloride 110 mmol/L (98-107); Estimated Creatinine Clearance 48 ml/min; Glucose 122 mg/dl (70-99); Magnesium 2.5 mg/dl (1.6-2.3); Potassium 5.8 mmol/L (3.5-5.1); Sodium 137 mmol/L (135-145); eGFR 43.91
[2023-05-18] MEDS: ZOFRAN 4 MG IV (03:41)
--- NOTE | 2023-05-18 04:00 | PTCARENOTE ---
Pt assessment unchanged; NSR on monitor, VSS; on going pain management; K still elevated, [id number] given, see MAR; Bicarb also ordered and given; call gates within reach; will continue to monitor.
[2023-05-18 05:08] LABS: Glucose - Point of Care 121 mg/dl (70-99)
[2023-05-18] MEDS: CALCIUM CHLORIDE 10% SYRINGE 500 MG IV (05:14)
[2023-05-18] MEDS: DEXTROSE 50% SYRINGE 25 GRAMS IV (05:14)
[2023-05-18] MEDS: NOVOLIN R 10 UNITS IV (05:15)
[2023-05-18] MEDS: SODIUM BICARBONATE 50 MEQ IV (05:26)
[2023-05-18] MEDS: TYLENOL 1000 MG PO ×3 (06:26→22:28)
--- NOTE | 2023-05-18 07:24 | W.PN.CD ---
Today's Communication / Plan
-
Encourage incentive spirometry, ambulation when possible.
Start furosemide 40 mg IV x1 and monitor response.
I would favor maintaining Neely-Giovana for one more day.
Chest tube management/pain control per CT surgery.
Repeat BMP after D50 + insulin. Low threshold for Lokelma.
Impression / Plan
-
Impression/Plan: 68 y/o male with HTN, TIA and severe primary mitral regurgitation admitted for elective mitral valve repair and LAAL (+/- MAZE).
#Primary mitral regurgitation
-S/P radical mitral valve repair (triangular section of P1/P2, imbrication of P1 to P2, #28 Sharma PhysioFlex band annuloplasty, SN [id number]), via right thoracotomy.
-CI = 2.71 L/min/m2.
-PA = 28-44/10-24.
-SaO2 = 92% on 15 L/min.
-Given hypoxia and weight gain with stable CI, it appears he is ready for diuretics.
-Start furosemide 40 mg IV x1 and monitor output.
-Keep K > 4, Mg > 2, Ca > 8 and PO4 > 2.5.
-Encourage incentive spirometry/ambulation.
-Chest tube management per CT surgery.
#FEN/Renal
-Acute kidney injury - I suspect from volume overload and cardiorenal syndrome.
-Potassium 5.8. Patient received D50 + insulin.
-Repeat BMP.
-Favor diuretics to mobilize fluids and decrease renal venous congestion. This will also help with potassium levels.
-If potassium remains elevated, start Lokelma.
#Hypertension
-Chronic, stable.
-Monitor post-op.
#TIA
-S/P LAAL (#35 Atriclip).
-Resume aspirin with safe from a surgical perspective.
-No definitive evidence of PAF.
Critical Care Time = 32 minutes.
Subjective/Interval History:
Surgery yesterday.
Initial EKG showed inferior infarct (Q waves) with mild ST elevation (really only lead III) but reportedly performed while patient was hypoxic.
Repeat EKG shows inferior infarct, age undetermined without SHAY.
Extubated 05/17/2023 at 15:50.
Weight is up 3.6 kg from preop (98.9 <-- 96.3).
CI low on arrival to CVICU (1.31). Now improved to 2.71.
Potassium 5.8 this morning.
DATA:
Intraprocedural BRIAN, 05/17/2023:
CONCLUSIONS
Normal biventricular function with LVEF of 60-65% by visual inspection.
Prolapsing P2 segment with anterior jet of moderate to severe mitral
regurgitation. Remaining cardiac valves are normal. The left atrial appendage
is normal. Grossly normal thoracic aorta.
No residual mitral regurgitation is seen. The mean gradient through the valve
is 3 mmHg with a cardiac index of 1.8 L/min/m2. Unchanged left ventricular
function on dobutamine 3 mcg/kg/min and norepinephrine 3 mcg/min. Diminished
right ventricular function that improved back to baseline after hemodynamic
maneuvers and improvement in pulmonary gas exchange. The left atrial appendage
is no longer visualized with no blood flow as seen with color Doppler.
CT C/A/P, 05/09/2023:
IMPRESSION:
1. No significant calcification of the mitral valve. Aortic valve is tricuspid.
2. Minimal left basilar subsegmental atelectasis, otherwise clear lungs.
3. Mild calcification of the proximal LAD. Please correlate with symptoms of and risk factors for coronary artery disease, with further workup as clinically appropriate.
4. Colonic diverticulosis without evidence of diverticulitis.
05/03/2023:
CONCLUSIONS
Normal LV size and function with no regional wall motion abnormalities.
Estimated LV EF of 60-65%.
No LVH.
Normal right ventricular size and function.
Prolapse with likely partial flail P1/P2 scallop of the posterior leaflet with
severe eccentric anteriorly directed regurgitation with Coanda effect.
Systolic flow reversal (suggestive of severe MR) in the pulmonary veins.
Compared to prior from April 01, 2023, mitral regurgitation is better
visualized on today's study and is likely severe with systolic flow reversal
seen in the pulmonary veins.
Cardiac Catheterization, 04/21/2023:
CORONARY ANGIOGRAPHY
Dominance: Right
Left Main: Cloacal
LAD: Normal
Circumflex: Normal
RCA: Normal dominant vessel
CONCLUSIONS
1: Mildly elevated LVEDP
2: Normal left ventricular function with EF 64%
3. Moderate to severe mitral regurgitation
4. Normal coronary arteries
Physical Exam
Vital Signs/Labs
Vital Signs
Temp Pulse Resp BP Pulse Ox
36.2 C 86 17 129/84 92
05/18/23 06:00 05/18/23 06:30 05/18/23 06:30 05/18/23 06:00 05/18/23 06:00
05/16/23 05/17/23 05/18/23
11:59 11:59 11:59
Actual Weight 95.3 kg 98.9 kg
05/18/23 02:57
05/18/23 06:30
PT 18.0 Sec (11.4-14.6) H 05/17/23 12:15
INR 1.50 05/17/23 12:15
APTT 34.4 Sec (23.4-35.0) 05/17/23 12:15
Magnesium 2.5 mg/dl (1.6-2.3) H 05/18/23 02:57
Physical Exam
Constitutional: No acute distress and Comfortable
EENT: Anicteric and Moist mucous membranes
Cardiovascular: Rhythm & rate is regular, Pedal edema is absent, JVD pressure is normal, S1S2 is normal and Murmur/rub/gallop absent
Respiratory: Respiratory effort normal, Lungs clear to auscul., Wheeze Absent, Crackles Absent and Rhonchi Absent
GI: Soft, Distention absent, Flat, Non tender and Normal bowel sounds
Neuro/Psych: AO x 3
Data Reviewed
-
Date of Service: May 18, 2023
Medical Decision Making: Reviewed Test Results, Independent Historian Assessment, Test Interpretation and Review of Case with other Provider
EKG: Tracing Personally Visualized and interpreted and Report Reviewed by me
Echo: Tracing Personally Visualized and interpreted and Report Reviewed by me
X-Ray/CT/US/MRI/NUC/PET: Image Personally Visualized and interpreted and Report Reviewed by me
Medical Tests (PFT, Pathology etc): Report Reviewed by me
Labs: Labs Reviewed by me
--- NOTE | 2023-05-18 07:44 | W.PN.ANS.POP ---
Anesthesia Post Operative
- Anesthesia Post Op Note
Vital Signs Stable-See Nursing Note: Yes
Airway Patent: Yes
Adequate Pain Control: Yes
Change in Mental Status: No
Current Postoperative Nausea & Vomiting: No
Anesthesia Complications: No
General Anesthetic Recall: No
Unplanned Admission: No
Post Op Hydration Adequate: Yes
--- NOTE | 2023-05-18 08:30 | PTCARENOTE ---
Assumed care of patient. Walking rounds completed with previous RN. Pt assessed while he was lying in bed. Pt alert and oriented x4. States right chest pain 11/23-see MAR. Denies nausea. States he feels weak, but equal strength in all extremities.
NSR on tele with rates 70s-80s. BP 120s-130s/60s-70s. Heart tones audible. CI 2.12 on Dobutamine at 1mcg/kg/min. Turned off per CT STEAM PLANT CONTROL ROOM OPERATOR. PA pressures 30s/10s, CVP 10s. Bilateral radial and DP pulses palpable. No edema noted. POX 93% on 15L NRB. Lungs
diminished in the bases. Pt refusing to complete IS at this time. Occasional moist nonproductive cough, encouraged pt to cough and deep breathe. Right pleural and mediastinal chest tubes to -20cm suction draining serosanguineous fluid. No air leaks,
tidaling, crepitus noted. Abdomen soft round nontender. Hypoactive BS. +belching. Soriano catheter draining adequate amounts of clear yellow urine. Right lateral incisions approximated with skin glue, puncture sites intact. Chest tube dressing CDI.
Right IJ cordis intact and swan floated to 45cm. Right AC 20g PIV infusing insulin per Critical Care Glycemic Protocol. NSS KVO infusing. See MAR for medication administration. See worklist for complete nursing assessment. Plan of care reviewed and
pt reluctantly in agreement.
[2023-05-18] MEDS: SENOKOT-S 1 TABLET PO ×2 (08:35→20:09)
[2023-05-18] MEDS: NEURONTIN 100 MG PO (08:35)
[2023-05-18] MEDS: LIDOCAINE 4% PATCH 1 PATCH TOPICAL (08:35)
[2023-05-18] MEDS: PROTONIX 40 MG PO (08:35)
[2023-05-18] MEDS: BACTROBAN 2% OINTMENT 1 APPLIC NASAL ×2 (08:36→20:10)
[2023-05-18] MEDS: LIPITOR 20 MG PO (08:36)
[2023-05-18] MEDS: VITAMIN C 500 MG PO (08:36)
[2023-05-18] MEDS: FLEXERIL 5 MG PO (08:36)
[2023-05-18] MEDS: LOW STRENGTH ASPIRIN 81 MG PO (08:36)
[2023-05-18] MEDS: CYMBALTA DELAYED RELEASE 20 MG PO ×2 (08:36→20:09)
[2023-05-18] MEDS: PACERONE 200 MG PO ×3 (08:36→22:28)
[2023-05-18 08:42] LABS: Mixed Venous O2 Saturation 60.9 %
[2023-05-18 08:51] LABS: Blood Urea Nitrogen 27 mg/dl (9-20); Calcium 9.5 mg/dl (8.4-10.2); Carbon Dioxide 24 mmol/L (22-30); Chloride 106 mmol/L (98-107); Estimated Creatinine Clearance 52 ml/min; Glucose 105 mg/dl (70-99); Sodium 138 mmol/L (135-145); eGFR 47.23
--- NOTE | 2023-05-18 09:00 | PTCARENOTE ---
CT MANAGER DEPARTMENT at bedside to d/c right pleural chest tube. new dressing applied. Pt tolerated.
[2023-05-18] MEDS: B COMPLEX w/VITAMIN C 1 CAPLET PO (09:01)
[2023-05-18] MEDS: LASIX 40 MG IV (09:01)
[2023-05-18 09:03] LABS: Potassium 4.7 mmol/L (3.5-5.1)
[2023-05-18 09:15] LABS: Glucose - Point of Care 144 mg/dl (70-99)
[2023-05-18 09:15] LABS: Glucose - Point of Care 87 mg/dl (70-99)
--- NOTE | 2023-05-18 09:20 | PTCARENOTE ---
CT INSTRUCTOR FLYING notified of CI 1.81, orders to keep dobut off and repeat CI in 1 hour.
--- NOTE | 2023-05-18 10:05 | CM ---
Chart reviewed. Patient is independent of ADLS, lives alone in a 1 STH, 0 SHAY, 0 DME. Patient with a supportive brother and sister, who be able to assist with the patient . Plan is for the patient to return home with CT Transitional RN. CM to
follow
[2023-05-18] MEDS: ROXICODONE 5 MG PO ×3 (10:13→18:27)
[2023-05-18] MEDS: NOVOLOG FLEXPEN 4 UNITS SC (11:09)
[2023-05-18] MEDS: NOVOLOG FLEXPEN SC (11:09)
[2023-05-18] MEDS: LOPRESSOR PO (11:10)
[2023-05-18] MEDS: NSS IV (11:10)
--- NOTE | 2023-05-18 11:10 | PTCARENOTE ---
CT JOB TRAINING SPECIALIST notified of CI 1.74, orders to keep dobut off as long as feet are warm and pt is making urine, both are confirmed.
[2023-05-18 11:13] LABS: Glucose - Point of Care 115 mg/dl (70-99)
--- NOTE | 2023-05-18 12:00 | PTCARENOTE ---
Pt reassessed. NSR on tele with rates in the 70s. BP stable. POX 91% on 15L midflow NC. Surgical sites stable. CT output WNL. Soriano draining adequate amounts of clear yellow urine. All lines remain intact.
[2023-05-18 13:05] LABS: Glucose - Point of Care 108 mg/dl (70-99)
[2023-05-18] MEDS: FERRLECIT 110 MG IV (13:46)
[2023-05-18] MEDS: TORADOL 15 MG IV (14:18)
[2023-05-18 14:29] LABS: Mixed Venous O2 Saturation 47.4 %
[2023-05-18] MEDS: VENTOLIN NEBULES 2.5 MG INH (14:56)
[2023-05-18] MEDS: VALIUM 2 MG PO (15:04)
[2023-05-18 15:08] LABS: Glucose - Point of Care 89 mg/dl (70-99)
--- NOTE | 2023-05-18 15:27 | W.PN.INTV ---
Today's Communication / Plan
Recommendations
Wean of dobutamine
Follow renal function
Analgesia with narcotics, follow respiratory status closely
Follow chest tube output
Postoperative care
Assessment
-
Status post radical mitral valve repair via right minithoracotomy
Postoperative mechanical ventilation
Postoperative anemia
Conditions present prior admission:
Mitral valve insufficiency
History of bilateral broken heels
Anxiety
Hypertension
Mild depression
BPH
Chronic back pain
Obesity
Assessment and plan:
Extubated and doing well.
On low rate supplemental oxygen
Relatively clear lung exam
Chest x-ray postop: Reviewed, no pneumothorax or collections.
Pain is controlled. Continue with analgesia
Incentive spirometry was encouraged
Crease activity per protocol as able.
Anemia noted-no evidence of acute bleeding
Follow H&H serially
Hemodynamics -on low rate dobutamine. Being weaned off.
PA catheter in place with adequate hemodynamics.
Postoperative acute kidney injury noted, trending lower. Good urinary output.
Continue hemodynamic support, follow daily BMP.
Chest tube with no excessive drainage-no air leak.
Chest x-ray reviewed: With no pneumothorax or fluid collections.
Advance diet as able.
Head of the bed elevation
Glycemic control per protocol
DVT prophylaxis when safe from the surgical perspective.
Patient has been downgraded. Critical care team will sign off.
Subjective Dataa
Subjective Data
Date of Service:
Date of Service: May 18, 2023
Chief Complaint: Senior Systems Analyst Follow Up (Status post mitral valve repair)
Subjective:
Patient states that the pain is relatively controlled.
Denies significant cough or phlegm production.
No significant shortness of breath at rest.
Review of Systems
General: Fever (n)
Cardiopulmonary: Dyspnea (n), Cough (n) and Sputum Production (n)
GI: Abdominal Pain (n)
Objective Data
Data Reviewed
Vital Signs / I&O / Oxygen:
Vital Signs
Temp Pulse Resp BP Pulse Ox
98.5 F 82 18 129/69 90
05/18/23 14:00 05/18/23 14:58 05/18/23 14:58 05/18/23 14:00 05/18/23 14:58
Intake and Output
05/17/23 05/18/23 05/19/23
06:59 06:59 06:59
Intake Total 1028.9 / 1061.0 327.3 / 327.3
Output Total 1435 / 1515 840 / 840
Balance -406.1 / -454.0 -512.7 / -512.7
SaO2 [CPAP] 94
SaO2 [SIMV] 98
SaO2 90
Nasal Cannula flow liters per 15
minute
Physical Exam
General: Respiratory Distress (n) and Comfortable
HEENT: Normocephalic
Cardiovascular: S1-S2
Respiratory: Clear, Non-Labored Respirations and Chest Tube (No air leak or excessive drainage)
GI: Soft and Non Distended
Neurology: Awake, Alert, AO x 3 and No Motor Deficits
Skin: Warm
Labs/Micro/Reports
Lab Data
05/18/23 02:57
05/18/23 08:23
Laboratory Results
05/17/23 05/17/23 05/18/23
15:28 20:54 02:57
pH 7.30 L 7.28 L 7.27 L
pCO2 44 46 48
pO2 82 L 71 L 87
HCO3 21.6 21.6 22.0
O2 Delivery Level non-rebreather mask
--- NOTE | 2023-05-18 16:45 | PTCARENOTE ---
Pt reassessed. Pt continues to rate pain 7-11/23-see MAR. Pt turned and repositioned, new sheets applied. Pt tolerated. SR with rates 80s-90s. BP stable. POX 90% on 15L Midflow, encouraged pt to cough & deep breath. CT output WNL. Soriano draining
adequate amounts clear yellow urine. Surgical sites stable. CI 2.72, dobutamine titrated to 1mcg/kg/min.
[2023-05-18] MEDS: DOBUTREX 500 MG 250 IV (16:56)
[2023-05-18 17:01] LABS: Mixed Venous O2 Saturation 68.9 %
[2023-05-18] MEDS: FLEXERIL 10 MG PO (17:02)
[2023-05-18] MEDS: NEURONTIN 200 MG PO ×2 (17:02→22:32)
[2023-05-18] MEDS: NEURONTIN PO (17:39)
[2023-05-18] MEDS: LOPRESSOR 12.5 MG PO (20:09)
--- NOTE | 2023-05-18 20:30 | SUR.OPER ---
Received pt from dayshift; pt resting in bed; pt is AAOx4; pt complains of 7/10 pain, see MAR for pain management; NSR on monitor, VSS; heart sounds audible, radial and DP pulses palpable, no edema noted, temp epicardial V-wires set to VVI rate of
50, MA 8, Mv 0.8; lung sounds diminished at b/l bases, pt O2 changed from midflow NC to highflow NC set to 50L, 100%, x1 mediastinal CT to -20 wall suction, no air leaks, no tidaling, no crepitus ; hypoactive BS x4 quadrants, abdomen soft non
tender; pt voiding clear yellow urine via arizmendi catheter; surgical sites COMBINE MECHANIC and CT dressing CDI; right IJ cordis, swan @45, left radial A-line, and PIV all maintained, leveled, and zeroed; dobutamine infusing; call gates within reach; will continue
to monitor.
[2023-05-19] VITALS (29 sets, daily range): BP systolic 98–150; BP diastolic 56–88; PULSE 76; O2SAT 97–99; BMI 33.4
--- NOTE | 2023-05-19 | PTCARENOTE ---
Pt assessment unchanged; pt resting comfortably in bed; see MAR for pain management; pt currently on highflow NC @50L, 80% per RT; call gates within reach; will continue to monitor.
[2023-05-19] MEDS: XANAX 0.25 MG PO (01:41)
--- NOTE | 2023-05-19 04:00 | PTCARENOTE ---
Pt assessment unchanged; NSR on monitor, VSS; am labs drawn and sent; RT changed highflow NC settings changed to 60L/90%; dobutamine still infusing; call gates within reach; will continue to monitor.
[2023-05-19 04:21] LABS: Hematocrit 32.1 % (39.0-52.0); Hemoglobin 10.9 g/dL (13.0-18.0); Mean Corpuscular Hgb 32.1 pg (27.0-31.0); Mean Corpuscular Volume 94.4 fL (80.0-94.0); Mean Platelet Volume 10.2 fL (7.4-10.4); Platelet Count 147 10^3/uL (130-400); Red Cell Dist. Width 14.4 % (11.5-14.5); White Blood Cell Count 13.6 10^3/uL (4.8-10.8)
[2023-05-19 04:46] LABS: Blood Urea Nitrogen 39 mg/dl (9-20); Calcium 8.6 mg/dl (8.4-10.2); Carbon Dioxide 25 mmol/L (22-30); Chloride 100 mmol/L (98-107); Estimated Creatinine Clearance 46 ml/min; Glucose 119 mg/dl (70-99); Magnesium 2.4 mg/dl (1.6-2.3); Potassium 4.4 mmol/L (3.5-5.1); Sodium 132 mmol/L (135-145)
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
--- NOTE | 2023-05-19 06:40 | PTCARENOTE ---
Pt was assisted OOB to chair by 3x RNs and RT to manage highflow o2; pt tolerated ambulating out of bed to chair; pt stated that he was very confused but was able to state his name/, knew where he was, knew that he had surgery, and new the date;
pt believes that he has been at the hospital for a week, and that he his having french vu; very agitated and anxious; chair alarm in place incase of increased concussion; pt had no facial droop, equal stealth in hands and legs; CVPA aware; will pass
on to dayshift; will continue to monitor
[2023-05-19] MEDS: TYLENOL 1000 MG PO ×3 (07:01→22:49)
--- NOTE | 2023-05-19 07:13 | W.PN.CD ---
Today's Communication / Plan
-
Bumetanide gtt @ 0.5 mg/hour.
Ambulate as he will tolerate.
Monitor mental status with recovery.
Frequent reorientation.
Impression / Plan
-
Impression/Plan: 68 y/o male with HTN, TIA and severe primary mitral regurgitation admitted for elective mitral valve repair and LAAL (+/- MAZE).
#Primary mitral regurgitation
-S/P radical mitral valve repair (triangular section of P1/P2, imbrication of P1 to P2, #28 Sharma PhysioFlex band annuloplasty, SN [id number]), via right thoracotomy.
-CI = 2.71 L/min/m2.
-PA = 28-44/10-24.
-SaO2 = 92% on HFNC.
-Keep K > 4, Mg > 2, Ca > 8 and PO4 > 2.5.
-Encourage incentive spirometry/ambulation.
-Chest tube management per CT surgery.
-Start bumetanide gtt at 1 mg/hour.
#FEN/Renal
-Acute kidney injury - I suspect from volume overload and cardiorenal syndrome.
-Potassium has normalized.
-Repeat BMP shows Na of 132.
-Aggressive diuresis as above.
#AMS
-Acute.
-DDx includes ICU psychosis, metabolic encephalopathy. No focal neurologic deficits. CVA possible but less likely.
-Correct underlying metabolic/renal disorder.
-Check ABG.
-Frequent reorientation.
#Hypertension
-Chronic, stable.
-Monitor post-op.
#TIA
-S/P LAAL (#35 Atriclip).
-Resume aspirin with safe from a surgical perspective.
-No definitive evidence of PAF.
Critical Care Time = 33 minutes.
Subjective/Interval History:
Patient confused this morning.
Weight is up an additional 0.6 kg after furosemide 40 mg IV and 880 mL output.
He is now requiring Hi-Flow NC.
Potassium corrected but now hyponatremic.
Creatinine up to 1.8.
CI has normalized.
PAd in the mid-20s.
DATA:
Intraprocedural BRIAN, 05/17/2023:
CONCLUSIONS
Normal biventricular function with LVEF of 60-65% by visual inspection.
Prolapsing P2 segment with anterior jet of moderate to severe mitral
regurgitation. Remaining cardiac valves are normal. The left atrial appendage
is normal. Grossly normal thoracic aorta.
No residual mitral regurgitation is seen. The mean gradient through the valve
is 3 mmHg with a cardiac index of 1.8 L/min/m2. Unchanged left ventricular
function on dobutamine 3 mcg/kg/min and norepinephrine 3 mcg/min. Diminished
right ventricular function that improved back to baseline after hemodynamic
maneuvers and improvement in pulmonary gas exchange. The left atrial appendage
is no longer visualized with no blood flow as seen with color Doppler.
CT C/A/P, 05/09/2023:
IMPRESSION:
1. No significant calcification of the mitral valve. Aortic valve is tricuspid.
2. Minimal left basilar subsegmental atelectasis, otherwise clear lungs.
3. Mild calcification of the proximal LAD. Please correlate with symptoms of and risk factors for coronary artery disease, with further workup as clinically appropriate.
4. Colonic diverticulosis without evidence of diverticulitis.
05/03/2023:
CONCLUSIONS
Normal LV size and function with no regional wall motion abnormalities.
Estimated LV EF of 60-65%.
No LVH.
Normal right ventricular size and function.
Prolapse with likely partial flail P1/P2 scallop of the posterior leaflet with
severe eccentric anteriorly directed regurgitation with Coanda effect.
Systolic flow reversal (suggestive of severe MR) in the pulmonary veins.
Compared to prior from April 01, 2023, mitral regurgitation is better
visualized on today's study and is likely severe with systolic flow reversal
seen in the pulmonary veins.
Cardiac Catheterization, 04/21/2023:
CORONARY ANGIOGRAPHY
Dominance: Right
Left Main: Cloacal
LAD: Normal
Circumflex: Normal
RCA: Normal dominant vessel
CONCLUSIONS
1: Mildly elevated LVEDP
2: Normal left ventricular function with EF 64%
3. Moderate to severe mitral regurgitation
4. Normal coronary arteries
Physical Exam
Vital Signs/Labs
Vital Signs
Temp Pulse Resp BP Pulse Ox
37.0 C 83 20 119/72 97
05/19/23 07:00 05/19/23 07:00 05/19/23 07:00 05/19/23 04:00 05/19/23 07:00
05/17/23 05/18/23 05/19/23
11:59 11:59 11:59
Actual Weight 95.3 kg 98.9 kg 99.5 kg
05/19/23 04:07
05/19/23 04:07
PT 18.0 Sec (11.4-14.6) H 05/17/23 12:15
INR 1.50 05/17/23 12:15
APTT 34.4 Sec (23.4-35.0) 05/17/23 12:15
Magnesium 2.4 mg/dl (1.6-2.3) H 05/19/23 04:07
Physical Exam
Constitutional: No acute distress and Comfortable
EENT: Anicteric and Moist mucous membranes
Cardiovascular: Rhythm & rate is regular, Pedal edema is absent, S1S2 is normal and Murmur/rub/gallop absent
Respiratory: Respiratory effort normal and Other (Decreased breath sounds at the bilateral bases.)
GI: Soft, Distention absent, Flat, Non tender and Normal bowel sounds
Neuro/Psych: Alert
Data Reviewed
-
Date of Service: May 19, 2023
Medical Decision Making: Reviewed Test Results, Independent Historian Assessment, Test Interpretation and Review of Case with other Provider
EKG: Tracing Personally Visualized and interpreted and Report Reviewed by me
Echo: Report Reviewed by me
X-Ray/CT/US/MRI/NUC/PET: Image Personally Visualized and interpreted and Report Reviewed by me
Medical Tests (PFT, Pathology etc): Report Reviewed by me
Labs: Labs Reviewed by me
--- NOTE | 2023-05-19 08:15 | PTCARENOTE ---
Resumed care of patient. Walking rounds completed with previous RN. Pt rates right chest incision pain 8/10, but refuses additional pain meds at this time. Denies nausea and shortness of breath. SINGLETARY with equal strength in all extremities. No facial
droop, tongue deviation noted. Alert and oriented x4, however wifty conversations at times. No aphasia noted. SR with rates in the 80s. BP stable. Dobutamine at 1mcg/kg/min. CI 2.14. PA pressures 30s/10s. CVP 13. Bilateral radial and DP pulses
palpable. +1 edema throughout. Epicardial v-wire 50/8/0.8. POX 96% on 40L 60% high flow NC. Lungs diminished in the bases. IS encouraged-2250mL achieved. Occasional moist productive cough with robles sputum. Mediastinal chest tube to -20cm suction
draining serosanguineous thin liquid. Abdomen soft round nontender. +hypoactive BS. Pt reports passing gas. Soriano draining adequate amounts of clear yellow urine. Right lateral chest incision approximated with skin glue. Chest tube dressing CDI.
Right groin incision approximated with skin glue intact. Right IJ cordis with swan floated to 45cm. Right AC 20g PIV intact. Left radial marquis intact. All lines flushed, leveled, and zeroed with appropriate waveforms. See MAR for medication
administration. See worklist for complete nursing assessment. Plan of care reviewed and patient in agreement.
[2023-05-19] MEDS: NEURONTIN 200 MG PO ×3 (08:45→22:49)
[2023-05-19] MEDS: FLOMAX 0.400000000000000022 MG PO (08:45)
[2023-05-19] MEDS: LOW STRENGTH ASPIRIN 81 MG PO (08:46)
[2023-05-19] MEDS: SENOKOT-S 1 TABLET PO ×2 (08:46→20:58)
[2023-05-19] MEDS: VITAMIN C 500 MG PO (08:46)
[2023-05-19] MEDS: PROTONIX 40 MG PO (08:46)
[2023-05-19] MEDS: PACERONE 200 MG PO ×3 (08:46→22:48)
[2023-05-19] MEDS: CYMBALTA DELAYED RELEASE 20 MG PO ×2 (08:46→20:58)
[2023-05-19] MEDS: FLUSH (NSS) 1 FLUSH IV (08:47)
[2023-05-19] MEDS: B COMPLEX w/VITAMIN C 1 CAPLET PO (08:47)
[2023-05-19] MEDS: LIPITOR 20 MG PO (08:47)
[2023-05-19] MEDS: NSS 500 IV (08:47)
[2023-05-19] MEDS: LIDOCAINE 4% PATCH 1 PATCH TOPICAL (08:47)
[2023-05-19] MEDS: BACTROBAN 2% OINTMENT 1 APPLIC NASAL ×2 (08:48→20:58)
[2023-05-19] MEDS: BUMEX 50 IV (10:44)
--- NOTE | 2023-05-19 12:00 | PTCARENOTE ---
Pt reassessed. Pt remains alert and oriented x4. Pt does not complain of any pain/nausea/shortness of breath at this time. NSR on tele with rates in the 70s. BP stable 107/64 via cuff. CI 2.3, PA pressures 30s/20s. CVP 12. POX 94% on 6L NC. Surgical
sites stable. Chest tube output WNL. Tolerating diet. Soriano draining adequate amounts clear yellow urine. All lines remain intact.
[2023-05-19 12:15] LABS: Mixed Venous O2 Saturation 58.3 %
--- NOTE | 2023-05-19 12:22 | CM ---
Chart reviewed. Patient was OOB sitting in the chair still requiring high flow oxygen. Patient is independent of ADLS, lives alone, with supportive brother, sister and daughter closeby. Patient lives in a [address], 0 SHAY, 0 DME. Plan is for the
patient to return home with CT Transitional RN. CM to follow
[2023-05-19 12:36] LABS: Blood Urea Nitrogen 40 mg/dl (9-20); Calcium 8.3 mg/dl (8.4-10.2); Carbon Dioxide 24 mmol/L (22-30); Chloride 103 mmol/L (98-107); Estimated Creatinine Clearance 49 ml/min; Glucose 131 mg/dl (70-99); Potassium 4.4 mmol/L (3.5-5.1); Sodium 130 mmol/L (135-145); eGFR 43.91
[2023-05-19] MEDS: FERRLECIT 110 MG IV (14:14)
[2023-05-19 16:36] LABS: Mixed Venous O2 Saturation 57.4 %
[2023-05-19 16:53] LABS: Blood Urea Nitrogen 42 mg/dl (9-20); Calcium 8.3 mg/dl (8.4-10.2); Carbon Dioxide 26 mmol/L (22-30); Chloride 100 mmol/L (98-107); Estimated Creatinine Clearance 49 ml/min; Glucose 126 mg/dl (70-99); Potassium 3.8 mmol/L (3.5-5.1); Sodium 133 mmol/L (135-145); eGFR 43.91
--- NOTE | 2023-05-19 17:00 | PTCARENOTE ---
Pt reassessed. Remains alert and oriented x4, wifty and confused conversation at times. NSR on tele with rates in the 70s. CI 1.97, CT PA aware. BP stable 115/82 via cuff. POX 91% on 3L NC. Surgical sites stable. Right IJ swan and left radial marquis
d/c. CT output WNL. No other acute changes from previous assessment.
[2023-05-19] MEDS: KCL 40 MEQ PO ×2 (17:48→22:48)
--- NOTE | 2023-05-19 21:00 | PTCARENOTE ---
Patient received resting in bed watching television. Patient A+A+Ox3. No neurological deficits noted. No c/o headache, dizziness or lightheadedness. No s/s of respiratory distress. Mild SIDHU. Midflow oxygen - 5L O2. SaO2 92%. One mediastinal
chest tube - Intact and patent - 10 ml serosanguineous drainage - No air leak, tidaling or crepitus noted. Sinus Rhythm. Heart rate 70's. Blood pressure 110/73 (85). Patient with no c/o chest pain, pressure or discomfort. V-Wires - Connected to
box. Normoactive bowel sounds. No BM. No c/o nausea. No vomiting. Soriano catheter - clear yellow urine - Outputs as charted. Patient with no c/o back or flank pain. Bumex gtt 0.5 mg/hr (2 ml/hr). Right I.J. Cordis/Saline flush 10 ml/hr.
Dressing as documented. Assessment as documented.
[2023-05-19 21:36] LABS: Blood Urea Nitrogen 45 mg/dl (9-20); Calcium 8.1 mg/dl (8.4-10.2); Carbon Dioxide 29 mmol/L (22-30); Chloride 101 mmol/L (98-107); Estimated Creatinine Clearance 52 ml/min; Glucose 133 mg/dl (70-99); Magnesium 2.1 mg/dl (1.6-2.3); Potassium 3.5 mmol/L (3.5-5.1); Sodium 132 mmol/L (135-145); eGFR 47.23
[2023-05-20] VITALS (27 sets, daily range): BP systolic 98–142; BP diastolic 65–91; PULSE 80; O2SAT 96; BMI 31.7
--- NOTE | 2023-05-20 | PTCARENOTE ---
Labs ordered and obtained. BMP and MAG. MAG 2.1. K 3.5 - Order for 40 mEq KCL PO - Administered without difficulty. Patient sleeping without difficulty. Assessment/Interventions as documented.
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
[2023-05-20] MEDS: BUMEX 50 IV (01:05)
[2023-05-20] MEDS: FLEXERIL 10 MG PO ×2 (01:44→19:57)
--- NOTE | 2023-05-20 03:30 | PTCARENOTE ---
Patient sleeping without difficulty. No changes from previous assessment. Assessment/Interventions as documented.
[2023-05-20 05:06] LABS: Hematocrit 31.1 % (39.0-52.0); Hemoglobin 10.4 g/dL (13.0-18.0); Mean Corp Hgb Conc. 33.4 g/dL (33.0-37.0); Mean Corpuscular Hgb 31.6 pg (27.0-31.0); Mean Corpuscular Volume 94.5 fL (80.0-94.0); Mean Platelet Volume 10.2 fL (7.4-10.4); Platelet Count 133 10^3/uL (130-400); Red Blood Cell Count 3.29 10^6/uL (4.70-6.10); Red Cell Dist. Width 14.3 % (11.5-14.5); White Blood Cell Count 9.9 10^3/uL (4.8-10.8)
[2023-05-20 05:32] LABS: Blood Urea Nitrogen 43 mg/dl (9-20); Calcium 8.1 mg/dl (8.4-10.2); Carbon Dioxide 31 mmol/L (22-30); Chloride 100 mmol/L (98-107); Estimated Creatinine Clearance 52 ml/min; Glucose 135 mg/dl (70-99); Magnesium 1.9 mg/dl (1.6-2.3); Sodium 136 mmol/L (135-145); eGFR 47.23
[2023-05-20] MEDS: TYLENOL 1000 MG PO ×3 (05:45→22:02)
--- NOTE | 2023-05-20 07:48 | PTCARENOTE ---
Patient received from nightshift nurse. Patient is alert and oriented x4, pleasant. Very talkative and restless. Denies pain/discomfort. NSR. HR 80s. Distant heart tones. V wires maintained to pacer box with settings: VVI. HR 50 mA 8 sensitivity
0.8. BP 112/83. Palpable pulses. Trace generalized edema. RIJ cordis maintained with KVO. PIV maintained. 6L midflow NC maintained. Oxygen saturation 96%. Upon auscultation, bilateral bases have fine crackles and diminished throughout. MS CT
maintained to -20cm wall suction with small serosanguineous drainage. Abdomen round, obese. +BS. Per patient, passing gas. No constipation, no BM. Soriano maintained with adequate clear, yellow UOP. Assist x1 OOB into chair. R lateral chest incision
is approximated with surgical adhesive and open to air. R middle chest puncture site is approximated with surgical adhesive and open to air. R axilla puncture sites approximated with surgical adhesive and open to air. Will continue to monitor.
--- NOTE | 2023-05-20 08:15 | W.PN.CD ---
Addendum entered and electronically signed by Neo Arana, 06/02/23 12:39:
Response to CDI:
Acute heart failure with preserved ejection fraction (diastolic heart failure).
Addendum entered and electronically signed by Neo Arana, 05/23/23 17:49:
Response to CDI:
JOAO is secondary to cardiorenal syndrome and acute heart failure.
Original Note:
Today's Communication / Plan
-
D/C bumetanide gtt.
Start bumetanide 1 mg PO daily tomorrow.
Allow to re-equilibrate.
Ambulate.
Impression / Plan
-
Impression/Plan: 68 y/o male with HTN, TIA and severe primary mitral regurgitation admitted for elective mitral valve repair and LAAL (+/- MAZE).
#Primary mitral regurgitation
-S/P radical mitral valve repair (triangular section of P1/P2, imbrication of P1 to P2, #28 Sharma PhysioFlex band annuloplasty, SN [id number]), via right thoracotomy.
-SaO2 = 96% on HFNC.
-Keep K > 4, Mg > 2, Ca > 8 and PO4 > 2.5.
-Encourage incentive spirometry/ambulation.
-D/C bumetanide gtt and start bumetanide 1 mg BID.
-Allow to re-equilibrate after aggressive diuresis.
#FEN/Renal
-Acute kidney injury - I suspect from volume overload and cardiorenal syndrome.
-D/C bumetanide gtt and convert to intermittent dosing.
-Monitor renal response. CO2 up to 31. No role for acetazolamide yet.
#AMS
-Acute.
-DDx includes ICU psychosis, metabolic encephalopathy. No focal neurologic deficits. CVA possible but less likely.
-Correct underlying metabolic/renal disorder.
-Frequent reorientation.
#Hypertension
-Chronic, stable.
-Monitor post-op.
#TIA
-S/P LAAL (#35 Atriclip).
-Resume aspirin with safe from a surgical perspective.
-No definitive evidence of PAF.
Subjective/Interval History:
Weight down 5.1 kg (!).
Remains on NC (6LNC).
Creatinine stable/down trending. CO2 has risen to 31.
DATA:
Intraprocedural BRIAN, 05/17/2023:
CONCLUSIONS
Normal biventricular function with LVEF of 60-65% by visual inspection.
Prolapsing P2 segment with anterior jet of moderate to severe mitral
regurgitation. Remaining cardiac valves are normal. The left atrial appendage
is normal. Grossly normal thoracic aorta.
No residual mitral regurgitation is seen. The mean gradient through the valve
is 3 mmHg with a cardiac index of 1.8 L/min/m2. Unchanged left ventricular
function on dobutamine 3 mcg/kg/min and norepinephrine 3 mcg/min. Diminished
right ventricular function that improved back to baseline after hemodynamic
maneuvers and improvement in pulmonary gas exchange. The left atrial appendage
is no longer visualized with no blood flow as seen with color Doppler.
CT C/A/P, 05/09/2023:
IMPRESSION:
1. No significant calcification of the mitral valve. Aortic valve is tricuspid.
2. Minimal left basilar subsegmental atelectasis, otherwise clear lungs.
3. Mild calcification of the proximal LAD. Please correlate with symptoms of and risk factors for coronary artery disease, with further workup as clinically appropriate.
4. Colonic diverticulosis without evidence of diverticulitis.
05/03/2023:
CONCLUSIONS
Normal LV size and function with no regional wall motion abnormalities.
Estimated LV EF of 60-65%.
No LVH.
Normal right ventricular size and function.
Prolapse with likely partial flail P1/P2 scallop of the posterior leaflet with
severe eccentric anteriorly directed regurgitation with Coanda effect.
Systolic flow reversal (suggestive of severe MR) in the pulmonary veins.
Compared to prior from April 01, 2023, mitral regurgitation is better
visualized on today's study and is likely severe with systolic flow reversal
seen in the pulmonary veins.
Cardiac Catheterization, 04/21/2023:
CORONARY ANGIOGRAPHY
Dominance: Right
Left Main: Cloacal
LAD: Normal
Circumflex: Normal
RCA: Normal dominant vessel
CONCLUSIONS
1: Mildly elevated LVEDP
2: Normal left ventricular function with EF 64%
3. Moderate to severe mitral regurgitation
4. Normal coronary arteries
Physical Exam
Vital Signs/Labs
Vital Signs
Temp Pulse Resp BP Pulse Ox
36.7 C 81 20 112/83 96
05/20/23 04:00 05/20/23 07:46 05/20/23 07:00 05/20/23 07:46 05/20/23 07:00
05/18/23 05/19/23 05/20/23
11:59 11:59 11:59
Actual Weight 98.9 kg 99.5 kg 94.4 kg
05/20/23 04:54
05/20/23 04:54
PT 18.0 Sec (11.4-14.6) H 05/17/23 12:15
INR 1.50 05/17/23 12:15
APTT 34.4 Sec (23.4-35.0) 05/17/23 12:15
Magnesium 1.9 mg/dl (1.6-2.3) 05/20/23 04:54
Physical Exam
Constitutional: No acute distress and Comfortable
EENT: Anicteric and Moist mucous membranes
Cardiovascular: Rhythm & rate is regular, Pedal edema is absent, JVD pressure is normal, S1S2 is normal and Murmur/rub/gallop absent
Respiratory: Respiratory effort normal, Lungs clear to auscul., Wheeze Absent, Crackles Absent and Rhonchi Absent
GI: Soft, Distention absent, Flat, Non tender and Normal bowel sounds
Neuro/Psych: AO x 3
Data Reviewed
-
Date of Service: May 20, 2023
Medical Decision Making: Reviewed Test Results, Independent Historian Assessment, Test Interpretation and Review of Case with other Provider
EKG: Tracing Personally Visualized and interpreted and Report Reviewed by me
Echo: Tracing Personally Visualized and interpreted and Report Reviewed by me
X-Ray/CT/US/MRI/NUC/PET: Image Personally Visualized and interpreted and Report Reviewed by me
Medical Tests (PFT, Pathology etc): Image Personally Visualized and interpreted and Report Reviewed by me
Labs: Labs Reviewed by me
[2023-05-20] MEDS: PACERONE 200 MG PO ×3 (08:30→22:02)
[2023-05-20] MEDS: NEURONTIN 200 MG PO ×3 (08:30→22:02)
[2023-05-20] MEDS: CYMBALTA DELAYED RELEASE 20 MG PO ×2 (08:30→19:57)
[2023-05-20] MEDS: DULCOLAX 10 MG PO (08:30)
[2023-05-20] MEDS: MUCINEX 600 MG PO ×2 (08:30→19:57)
[2023-05-20] MEDS: FLOMAX 0.400000000000000022 MG PO (08:30)
[2023-05-20] MEDS: LOPRESSOR 12.5 MG PO ×2 (08:30→19:56)
[2023-05-20] MEDS: LOW STRENGTH ASPIRIN 81 MG PO (08:31)
[2023-05-20] MEDS: LIDOCAINE 4% PATCH TOPICAL (08:31)
[2023-05-20] MEDS: BUMEX 1 MG IV ×2 (08:31→20:27)
[2023-05-20] MEDS: LIPITOR 20 MG PO (08:31)
[2023-05-20] MEDS: SENOKOT-S 1 TABLET PO ×2 (08:31→19:57)
[2023-05-20] MEDS: PROTONIX 40 MG PO (08:31)
[2023-05-20] MEDS: VITAMIN C 500 MG PO (08:31)
[2023-05-20] MEDS: B COMPLEX w/VITAMIN C 1 CAPLET PO (08:31)
[2023-05-20] MEDS: BACTROBAN 2% OINTMENT 1 APPLIC NASAL ×2 (08:32→19:57)
--- NOTE | 2023-05-20 11:14 | PTCARENOTE ---
Patient placed back into bed after working with CR. He did very well. MS CT discontinued per order and per protocol. Patient tolerated. New dressing applied.
Vital signs stable. NSR. V wire maintained to pacer box. HR 70s. BP 110/75. 2L NC maintained. Oxygen saturation 94%. Soriano maintained with adequate clear, yellow UOP. Will take patient for a walk after he eats lunch.
--- NOTE | 2023-05-20 11:48 | PN.CDI ---
CDI
- -
CDI:
Physician Documentation Request
Admit Date: 05/17/23 04:57
Dear Doctor Sumit,
Please review the following and provide your response in the progress notes.
Clinical Indicators:
- Cardiology notes 'Acute kidney injury - I suspect from volume overload and cardiorenal syndrome'
- 05/18 IV Lasix given
- 05/18 Bumetanide gtt started
- 05/19 Bumetanide gtt
- 11lb weight loss from 05/18-05/19
Please clarify the diagnosis with the above findings and the use of IV diuresis:
Acute heart failure (please specify type)
Volume overload only
Other
Use of terms such as suspected, likely, concern for, or probable (associated with a specific diagnosis that is being evaluated, monitored, or treated as if it exists) are acceptable and can be coded in the inpatient setting, when documented at the
time of discharge.
Thank you,
Adalgisa Garcia RN
CDI Specialist
Please use your independent medical judgment in providing your response.
--- NOTE | 2023-05-20 11:54 | CM ---
Chart reviewed. Patient is independent of ADLS, lives alone in a 1 STH, 0 SHAY, 0 DME. Patient with supportive sister, brother, daughter and friend who are all closeby to help assist. Plan is for the patient to return home with CT Transitional
RN. MARC to follow
[2023-05-20] MEDS: NSS 500 IV (14:17)
[2023-05-20] MEDS: FERRLECIT 110 MG IV (14:18)
--- NOTE | 2023-05-20 15:16 | PTCARENOTE ---
Vital signs stable. NSR. HR 70s. V wires insulated. BP 104/74. Weaned down to RA. Oxygen saturation 92%. Patient ambulated in hallway with RN. Will discontinue arizmendi.
[2023-05-20 18:29] LABS: INR 1.13; PT 14.4 Sec (11.4-14.6)
--- NOTE | 2023-05-20 18:29 | PTCARENOTE ---
Patient passed gas in BR and voided a small amount (per patient) then got back into bed by himself. RIJ Cordis discontinued per order and per protocol. Pressure applied and patient tolerated. New dressing applied. Patient OOB into chair with standby
assist for dinner. Will ambulate in the hallway before getting back into bed.
[2023-05-20 18:30] LABS: APTT 43.9 Sec (23.4-35.0)
[2023-05-20 18:38] LABS: ALT (SGPT) 20 U/L (0-50); AST (SGOT) 35 U/L (17-59); Albumin 3.3 g/dl (3.5-5.0); Alkaline Phosphatase 70 U/L (38-126); Direct Bilirubin 0.3 mg/dl (0.0-0.4); Total Bilirubin 0.7 mg/dl (0.2-1.3); Total Protein 5.9 g/dl (6.3-8.2)
[2023-05-20] MEDS: BUMEX IV (20:00)
--- NOTE | 2023-05-20 21:00 | PTCARENOTE ---
Patient received OOB in chair watching television. Patient A+A+Ox3. No neurological deficits noted. No c/o headache, dizziness or lightheadedness. Room air. SaO2 91%. Occasional productive cough - Small amount thick clear, whitish, brownish
secretions. I.S. 2000 ml. Chest tube dressing intact. Sinus Rhythm. Heart rate 80's. Blood pressure 117/80 (91). V-Wires insulated. No c/o chest pain, pressure or discomfort. Normoactive bowel sounds. No BM. Positive flatus. No c/o
nausea. No vomiting. Voided 475 ml yellow, clear urine. Right lateral chest puncture sites/incision - Intact - Surgical adhesive. Patient with no c/o back or flank pain. Assessment as documented.
[2023-05-21] VITALS (8 sets, daily range): BP systolic 107–123; BP diastolic 86–91; PULSE 80; O2SAT 93–99; BMI 31.5
--- NOTE | 2023-05-21 | PTCARENOTE ---
Patient sleeping without difficulty. No further changes from previous assessment.
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
[2023-05-21 04:23] LABS: Hematocrit 31.1 % (39.0-52.0); Hemoglobin 10.5 g/dL (13.0-18.0); Mean Corp Hgb Conc. 33.8 g/dL (33.0-37.0); Mean Corpuscular Hgb 31.8 pg (27.0-31.0); Mean Corpuscular Volume 94.2 fL (80.0-94.0); Mean Platelet Volume 10.5 fL (7.4-10.4); Platelet Count 143 10^3/uL (130-400); Red Cell Dist. Width 14.4 % (11.5-14.5); White Blood Cell Count 7.7 10^3/uL (4.8-10.8)
--- NOTE | 2023-05-21 04:30 | PTCARENOTE ---
Patient A+A+Ox3. No neurological deficits noted. Patient ambulated to bathroom by self. Steady gait. Voided 350 ml. Room air. SaO2 94%. Standing scale weight 94.0 kg. Patient back to bed. AM lab work collected and sent.
Assessment/Interventions as documented.
[2023-05-21 05:10] LABS: Blood Urea Nitrogen 43 mg/dl (9-20); Calcium 8.3 mg/dl (8.4-10.2); Carbon Dioxide 32 mmol/L (22-30); Chloride 100 mmol/L (98-107); Estimated Creatinine Clearance 54 ml/min; Glucose 105 mg/dl (70-99); Potassium 3.4 mmol/L (3.5-5.1); Sodium 134 mmol/L (135-145); eGFR 51.03
[2023-05-21] MEDS: KCL 40 MEQ PO (05:44)
[2023-05-21] MEDS: TYLENOL 1000 MG PO (05:45)
[2023-05-21] MEDS: FLUSH (NSS) 1 FLUSH IV (07:40)
[2023-05-21] MEDS: LIDOCAINE 4% PATCH 1 PATCH TOPICAL (07:40)
[2023-05-21] MEDS: CYMBALTA DELAYED RELEASE 20 MG PO (07:41)
[2023-05-21] MEDS: LOW STRENGTH ASPIRIN 81 MG PO (07:41)
[2023-05-21] MEDS: VITAMIN C 500 MG PO (07:41)
[2023-05-21] MEDS: MUCINEX 600 MG PO (07:41)
[2023-05-21] MEDS: ROXICODONE 5 MG PO (07:41)
[2023-05-21] MEDS: LIPITOR 20 MG PO (07:41)
[2023-05-21] MEDS: FLOMAX 0.400000000000000022 MG PO (07:41)
[2023-05-21] MEDS: PROTONIX 40 MG PO (07:41)
[2023-05-21] MEDS: SENOKOT-S PO (07:41)
[2023-05-21] MEDS: PACERONE 200 MG PO (07:41)
[2023-05-21] MEDS: LOPRESSOR 12.5 MG PO (07:41)
[2023-05-21] MEDS: NEURONTIN 200 MG PO (07:41)
[2023-05-21] MEDS: B COMPLEX w/VITAMIN C 1 CAPLET PO (07:41)
[2023-05-21] MEDS: BACTROBAN 2% OINTMENT 1 APPLIC NASAL (07:42)
--- NOTE | 2023-05-21 07:45 | PTCARENOTE ---
Resumed care of patient. Walking rounds completed with previous RN. Pt assessed while he was sitting in the chair. Pt alert and oriented x4. Pt rates right sided chest pain 10/10-see MAR. Denies nausea, and shortness of breath. SINGLETARY with equal
strength in all extremities. NSR on tele with rates in the 80s. BP stable 118/91. Heart tones audible. Epicardial v-wire insulated.Bilateral radial and DP pulses palpable. No edema noted. POX 91% on RA. Lungs clear throughout. IS encouraged-2000mL
achieved. Abdomen soft, round, nontender. +BS. Pt reports BM this morning. Voiding masoud urine in the urinal/toilet, no complaints. Right lateral incision and puncture sties approximated and ARIC. Old chest tube sites covered, dressing CDI. Right
groin incision and puncture sites approximated with skin glue, ARIC. Right AC 20g PIV intact. See MAR for medication administration. See worklist for complete nursing assessment. Plan of care reviewed and patient in agreement.
[2023-05-21] MEDS: LASIX 40 MG PO (07:46)
[2023-05-21] MEDS: NSS IV (07:50)
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
--- NOTE | 2023-05-21 09:05 | PTCARENOTE ---
Epicardial V-wire cut with 2 RNs. Pt tolerated.
--- NOTE | 2023-05-21 11:00 | PTCARENOTE ---
Pt showered and tolerated. Pt got dressed independently. PIV d/c. Discharge instructions and medications reviewed, pt states understanding. Pt wheeled out to brother's car. Pt stable prior to discharge.
== END 2023-05-21 12:00 | disposition home or self-care (01) | DRG 219 ==
LOC: CVICU 04:57
PROVIDERS: Clinical Nurse Specialist Acute Care; Nurse Practitioner; Physician Assistant Medical; ADMITTING PHYSICIAN Thoracic Surgery (Cardiothoracic Vascular Surgery); CONSULT PHYSICIAN Internal Medicine Critical Care Medicine; FAMILY PHYSICIAN Internal Medicine
PROC: B24BZZ4 Ultrasonography of Heart with Aorta, Transesophageal (ICD-10-PCS; 2023-05-17)
PROC: 02L70CK Occlusion of Left Atrial Appendage with Extraluminal Device, Open Approach (ICD-10-PCS; 2023-05-17)
PROC: 02UG0JZ Supplement Mitral Valve with Synthetic Substitute, Open Approach (ICD-10-PCS; 2023-05-17)
PROC: 5A1221Z Performance of Cardiac Output, Continuous (ICD-10-PCS; 2023-05-17)
DX: I34.0 Nonrheumatic mitral (valve) insufficiency (principal); J95.1 Acute pulmonary insufficiency following thoracic surgery; D62 Acute posthemorrhagic anemia; I30.8 Other forms of acute pericarditis; J98.11 Atelectasis; E87.1 Hypo-osmolality and hyponatremia; N17.9 Acute kidney failure, unspecified; I13.0 Hypertensive heart and chronic kidney disease with heart failure and stage 1 through stage 4 chronic kidney disease, or unspecified chronic kidney disease; J44.9 Chronic obstructive pulmonary disease, unspecified; E78.5 Hyperlipidemia, unspecified; K21.9 Gastro-esophageal reflux disease without esophagitis; Y83.1 Surgical operation with implant of artificial internal device as the cause of abnormal reaction of the patient, or of later complication, without mention of misadventure at the time of the procedure; E86.1 Hypovolemia; E87.5 Hyperkalemia; N18.9 Chronic kidney disease, unspecified; I50.9 Heart failure, unspecified; E66.01 Morbid (severe) obesity due to excess calories; N40.0 Benign prostatic hyperplasia without lower urinary tract symptoms; F32.A Depression, unspecified; R73.03 Prediabetes; Z87.891 Personal history of nicotine dependence; Z68.31 Body mass index [BMI] 31.0-31.9, adult; Z86.73 Personal history of transient ischemic attack (TIA), and cerebral infarction without residual deficits
CPT/HCPCS: 93308; 36415; 71045; 71046; 80048; 80053; 80076; 81003; 81015; 82248; 82330; 82565; 82805; 82810; 82947; 82962; 83036; 83735; 84132; 84302; 84520; 85014; 85018; 85025; 85027; 85049; 85610; 85730; 86850; 86900; 86901; 86920; 87070; 87086; 93005; 93312; 93320; 93321; 93325; 93880; 93970; 94002; 94010; 94640; J2916; P9045; P9047

== ENCOUNTER 2023-05-22 09:28 | Emergency (ER) | payer MEDICARE, OTHER, SELFPAY ==
[2023-05-22 09:46] VITALS: BP 127/100
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
[2023-05-22 11:00] VITALS: BP 124/86
[2023-05-22 12:32] VITALS: BP 127/88
== END 2023-05-22 12:33 | disposition home or self-care (01) ==
LOC: EMR 09:28
PROVIDERS: EMERGENCY PHYSICIAN Emergency Medicine; FAMILY PHYSICIAN Internal Medicine
DX: S22.31XA Fracture of one rib, right side, initial encounter for closed fracture (principal); S09.90XA Unspecified injury of head, initial encounter; W01.190A Fall on same level from slipping, tripping and stumbling with subsequent striking against furniture, initial encounter; I10 Essential (primary) hypertension; I34.0 Nonrheumatic mitral (valve) insufficiency; E78.00 Pure hypercholesterolemia, unspecified; F41.9 Anxiety disorder, unspecified; M51.37 Other intervertebral disc degeneration, lumbosacral region; G89.29 Other chronic pain; F17.290 Nicotine dependence, other tobacco product, uncomplicated; Z95.2 Presence of prosthetic heart valve; Z79.82 Long term (current) use of aspirin
CPT/HCPCS: 99284; 70450; 71101

== ENCOUNTER 2023-06-13 08:57 | Emergency (ER) | payer MEDICARE, OTHER, SELFPAY ==
[2023-06-13] VITALS (16 sets, daily range): BP systolic 109–141; BP diastolic 75–112; BMI 33.5
[2023-06-13 09:46] LABS: % Basophils 1.8 % (0-2); % Eosinophils 7.6 % (0-6); % Immature Granulocytes 0.4 % (0-0.5); % Lymphocytes 24.5 % (20.5-51.1); % Monocytes 13.5 % (1.7-9.3); % Neutrophils 52.2 % (42.2-75.2); Absolute Basophils 0.1 10^3/uL (0-0.2); Absolute Eosinophils 0.6 10^3/uL (0-0.7); Absolute Lymphocytes 1.9 10^3/uL (1.2-3.4); Hematocrit 40.5 % (39.0-52.0); Hemoglobin 13.6 g/dL (13.0-18.0); Mean Corp Hgb Conc. 33.6 g/dL (33.0-37.0); Mean Corpuscular Hgb 30.5 pg (27.0-31.0); Mean Corpuscular Volume 90.8 fL (80.0-94.0); Nucleated Red Blood Cells % 0 % (-); Platelet Count 367 10^3/uL (130-400); Red Blood Cell Count 4.46 10^6/uL (4.70-6.10); Red Cell Dist. Width 13.6 % (11.5-14.5); White Blood Cell Count 7.6 10^3/uL (4.8-10.8)
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
[2023-06-13 09:58] LABS: COVID-19 Antigen Negative (Negative)
[2023-06-13 10:07] LABS: Blood Urea Nitrogen 19 mg/dl (9-20); Calcium 9.4 mg/dl (8.4-10.2); Carbon Dioxide 25 mmol/L (22-30); Chloride 106 mmol/L (98-107); Estimated Creatinine Clearance 71 ml/min; Glucose 110 mg/dl (70-99); Sodium 136 mmol/L (135-145); eGFR > 60.00
[2023-06-13 10:17] LABS: NT-proBNP 458 pg/ml; Troponin I 0.036 ng/ml
--- NOTE | 2023-06-13 10:22 | EDRN ---
Troponin came back elevated, this RN notified the provider Dr. Betancourt
[2023-06-13] MEDS: LASIX 60 MG IV (10:57)
--- NOTE | 2023-06-13 11:22 | CON.CAR ---
Addendum entered and electronically signed by Wilberto Mullins MD 06/13/23 16:16:
CT scan with large right pleural effusion, would recommend thoracentesis and discharged on 40 mg of p.o. Lasix. Case discussed with Dr. Glez.
Addendum entered and electronically signed by Wilberto Mullins MD 06/13/23 12:43:
I saw and examined the patient.
The TANDEM MILL STICKER's note was reviewed and I agree with the note.
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 He feels sob all the time,
worse with activity and laying flat. He endorses chills no fever. He wears a fit bit an HR has been low 100's since going home. He denies cp or le edema. [place]th has been stable. On exam he has a rapid but regular rhythm. No significant murmur. His
lungs seem CTA. abdomen is obese, legs are not edematous. On ECG he has sinus tachycardia, LAD, inferior infarct compared to the prior, rate is incrased. CXR shows right hemidiaphragm ? Rt pna. He doesn't appear wet, weight is the same on
discharge. History underwhelming of pna. but bedside echo shows no effusion, lvef ok, and rv ok. I discussed wtih Dr Betancourt. He appears nontoxic but with sob, recent hospitalizaiton and sinus tachycardia, would rule out PE> Otherwise consider
treatment for CAP.
If improved, would discharge later today if testing remains normal.
Original Note:
Consultation
Consultation Request
Date/Time Consultation Requested: 06/13/2023 10:50
Date/Time Consultation Performed: 06/13/2023 11:00
Requesting Provider: Dr. Betancourt
Performing Provider: ROSLYN Whitfield for Dr. Mullins
Reason for Consultation: Acute on chronic heart failure
Medical History
-
Chief Complaint: Shortness of breath
History of Present Illness:
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 His shortness of
breath started two days ago. He noticed it when he would lay flat. He denies CP. He denies SIDHU. He has not gained weight. No lower extremity edema. He underwent mitral valve repair with #28mm band, triangular resection of P1 and P2, imbrication of
P1 to P2, left atrial appendage exclusion #[address] Mauricio Alanis on 05/17/2023. He was briefly on dobutamine. He required bumetanide gtt briefly POD# 2. POD #3 was given two doses. His creatinine plateaued at 1.5. He was not discharged on
oral diuretic. He was given furosemide 60mg in the ER. He is tachycardic, normotensive, and not hypoxic in the emergency room.
Past Medical History
Past Medical History: HTN, Hypercholesterolemia and Valvular Disease (Radical mitral valve repair 05/2023)
Past Surgical History: Cardiac and Orthopedic
Social History
Tobacco: Former Smoker
Alcohol: None
Drug: None
Personal: Single
Living: Alone
Family History
Family History: Reviewed & Not Pertinent
Allergies / Home Medications
Allergy/AdvReac Type Severity Reaction Status Date / Time
No Known Drug Allergies Allergy Unknown Verified 05/22/23 09:48
�Medication �Instructions �Recorded �Confirmed �Type
alfuzosin 10 mg tablet,extended 10 mg PO DAILY Urinary Issue 05/20/22 06/13/23 History
release 24 hr
ascorbic acid (vitamin C) 500 mg 500 mg PO DAILY Supplement 05/20/22 06/13/23 History
tablet (Vitamin C)
gabapentin 300 mg capsule 300 mg PO TID PRN Neurological 05/20/22 06/13/23 History
Condition
vitamin E 268 mg (400 unit) capsule 268 mg PO DAILY Supplement 05/20/22 06/13/23 History
amlodipine 5 mg tablet 5 mg PO DAILY Blood Pressure 01/22/23 06/13/23 History
duloxetine 20 mg capsule,delayed 20 mg PO BID Mental Health/Anxiety 04/01/23 06/13/23 History
release
montelukast 10 mg tablet 10 mg PO DAILY Lung/Breathing 04/01/23 06/13/23 History
Issues
pantoprazole 40 mg tablet,delayed 40 mg PO DAILY GERD 04/01/23 06/13/23 History
release
atorvastatin 20 mg tablet 20 mg PO DAILY High Cholesterol 05/03/23 06/13/23 History
atenolol 25 mg tablet 25 mg PO DAILY Heart 05/21/23 06/13/23 Rx
disease/condition #30 tabs
aspirin 81 mg tablet,delayed 81 mg PO DAILY Blood Clot 06/13/23 06/13/23 History
release Prevention/Tx
Review of Systems
-
History Source: Patient
All other systems: Negative unless noted
Respiratory: Trouble Breathing
Cardiac: No Symptoms
Abdomen/GI: No Symptoms
: No Symptoms
Physical Exam
Vital Signs
Temp Pulse Resp BP Pulse Ox
97.6 F 82 11 146/71 94
06/13/23 09:03 06/13/23 10:57 06/13/23 10:00 06/13/23 10:57 06/13/23 10:00
Lab Results
06/13/23 09:28
Troponin I 0.036 ng/ml H* 06/13/23 09:28
Cvp-B-Uhpwkyxwdrs Pept 458 pg/ml 06/13/23 09:28
Physical Exam
General: Well Developed, Well Nourished, No Apparent Distress and Comfortable
HEENT: Normocephalic, Anicteric and Moist Mucous Membranes
Respiratory: Clear and Non Labored Respirations
Cardiac: S1/S2 and Regular Rhythm; Negative Peripheral Edema
Breast: Deferred by me
GI: Soft, Non Tender, Non Distended and Normal Bowel Sounds
Rectal: Deferred by Provider
Genito-urinary: No Costovertebral Tender
Musculoskeletal: No Clubbing, No Cyanosis and No Edema
Skin: Warm and Dry
Neuro: AO x 3
Hematologic/Lymphatic: No Lymphadenopathy
Psych: Calm
Impression / Plan
-
Shortness of breath
-Ddx includes HFpEF, consider PE given tachycardia
-Orthopnea with dry non productive cough
HFpEF, acute
-Weight is stable without edema but endorses orthopnea
-Given furosemide 60mg IV in ER, follow output
Abnormal troponin, nonischemic myocardial injury in the setting of recent cardiac surgery
-Denies angina
-Troponin 0.036, he denies angina
Sinus tachycardia, on atenolol
S/P radical mitral valve repair (triangular section of P1/P2, imbrication of P1 to P2, #28 Sharma [employer]io[employer] band annuloplasty, SN [id number]), via right thoracotomy 05/17/[address] Alanis
HTN, chronic and stable
Data Reviewed
-
EKG: Report Reviewed by me (Sinus tachycardia, rate 113)
Radiology: Report Reviewed by me (CXR: New findings suggesting mild right lower lobe pneumonia. Moderate elevation of the right hemidiaphragm. Stable)
Labs: Labs Reviewed by me
Old Records: Reviewed
--- NOTE | 2023-06-13 11:24 | EDRN ---
the pt pressed the call gates and this RN entered the room with CORINNE Molina, the pt stated that he needed to use the bathroom, the pt was able to ambulate to the bathroom and back to the stretcher with no issues, the pt is resting in stretcher in the
lowest position, side rails up x1, HOB elevated, no s/s of distress, no c/o chest pain, slight c/o SOB, will continue to monitor the pt closely
[2023-06-13 11:27] LABS: Magnesium 2.2 mg/dl (1.6-2.3); Potassium 4.4 mmol/L (3.5-5.1)
--- NOTE | 2023-06-13 13:08 | EDRN ---
the pt was brought back from CT scan, the pt refused the CT scan, this RN notified Dr. Betancourt
[2023-06-13] MEDS: ATIVAN 1 MG IV (13:14)
--- NOTE | 2023-06-13 13:16 | EDRN ---
Ativan 1mg IV administered per Dr. Betancourt's orders prior to going back to CT scan
--- NOTE | 2023-06-13 15:44 | EDRN ---
the pt came out of the room and stated to this RN, 'Come in here now', this RN entered the pts room and the pt stated to this RN, 'Take this IV out right now i am leaving i have been here for 8 hours, this is ridiculous and they still don't know
what's wrong with me', this RN removed the pts RAC PIV and notified Dr. Sin, this RN attempted to get the pt to stay until the provider could come to the pts bedside, Dr. Sin at the pts bedside speaking with the pt about findings
--- NOTE | 2023-06-13 16:00 | EDRN ---
the pt agreed with Dr. Sin and this RN to stay to be taken to IR, the pt is agreeable to getting back into patient gown
--- NOTE | 2023-06-13 16:39 | EDRN ---
the pt was taken to IR by ED PCT
== END 2023-06-13 19:36 | disposition home or self-care (01) ==
LOC: EMR 08:57
PROVIDERS: Emergency Medicine; CONSULT PHYSICIAN Internal Medicine Cardiovascular Disease; EMERGENCY PHYSICIAN Emergency Medicine; FAMILY PHYSICIAN Internal Medicine
DX: J90 Pleural effusion, not elsewhere classified (principal); R06.09 Other forms of dyspnea; I10 Essential (primary) hypertension; Z87.891 Personal history of nicotine dependence
CPT/HCPCS: 99285; 96374; 96375; 32555; 71045; 71046; 71275; 80048; 83735; 83880; 84132; 84484; 85025; 87502; 87811; 93005; 93306; Q9967

== ENCOUNTER → 2023-07-04 10:40 | Outpatient (REF) | payer MEDICARE, OTHER, SELFPAY | LOC: RAD 10:40 | PROVIDERS: ATTENDING PHYSICIAN Nurse Practitioner; FAMILY PHYSICIAN Internal Medicine | DX: Z98.890 Other specified postprocedural states (principal); J90 Pleural effusion, not elsewhere classified | CPT/HCPCS: 71046 ==

== ENCOUNTER 2023-07-05 17:31 | Outpatient (RCR) | payer MEDICARE, OTHER, SELFPAY | END 2023-07-05 23:59 | disposition home or self-care (01) | LOC: CRHB 17:31 | PROVIDERS: ATTENDING PHYSICIAN Internal Medicine Cardiovascular Disease; FAMILY PHYSICIAN Internal Medicine | DX: Z95.2 Presence of prosthetic heart valve (principal) | CPT/HCPCS: G0422; G0423 ==

== ENCOUNTER 2023-07-12 17:43 | Emergency (ER) | payer MEDICARE, OTHER, SELFPAY ==
[2023-07-12] VITALS (24 sets, daily range): BP systolic 80–118; BP diastolic 56–89; PULSE 73–83; BMI 32.3
[2023-07-12 18:14] LABS: % Immature Granulocytes 0.3 % (0-0.5); % Monocytes 10.4 % (1.7-9.3); % Neutrophils 53.3 % (42.2-75.2); Absolute Basophils 0.1 10^3/uL (0-0.2); Absolute Eosinophils 0.4 10^3/uL (0-0.7); Absolute Lymphocytes 1.7 10^3/uL (1.2-3.4); Absolute Monocytes 0.6 10^3/uL (0.1-0.6); Absolute Neutrophils 3.3 10^3/uL (1.4-6.5); Hematocrit 37.2 % (39.0-52.0); Mean Corp Hgb Conc. 34.9 g/dL (33.0-37.0); Mean Corpuscular Hgb 30.8 pg (27.0-31.0); Mean Corpuscular Volume 88.2 fL (80.0-94.0); Mean Platelet Volume 9.8 fL (7.4-10.4); Nucleated Red Blood Cells % 0 % (-); Platelet Count 235 10^3/uL (130-400); Red Blood Cell Count 4.22 10^6/uL (4.70-6.10); White Blood Cell Count 6.1 10^3/uL (4.8-10.8)
[2023-07-12 18:28] LABS: ALT (SGPT) 23 U/L (0-50); AST (SGOT) 30 U/L (17-59); Albumin 3.9 g/dl (3.5-5.0); Alkaline Phosphatase 79 U/L (38-126); Blood Urea Nitrogen 22 mg/dl (9-20); Calcium 9.3 mg/dl (8.4-10.2); Carbon Dioxide 23 mmol/L (22-30); Chloride 106 mmol/L (98-107); Estimated Creatinine Clearance 51 ml/min; Glucose 113 mg/dl (70-99); Potassium 4.4 mmol/L (3.5-5.1); Sodium 138 mmol/L (135-145); Total Bilirubin 0.5 mg/dl (0.2-1.3); eGFR 47.23
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
[2023-07-12] MEDS: NSS 1000 IV (18:35)
[2023-07-12 18:38] LABS: Troponin I < 0.012 ng/ml
--- NOTE | 2023-07-12 21:24 | PTCARENOTE ---
Pt got slightly dizzy when going from supine to sitting position.
[2023-07-12 21:30] LABS: Urine Albumin Trace (Neg - Trace); Urine Bilirubin Negative (Negative); Urine Character Clear (Clear); Urine Color Yellow; Urine Glucose Negative (Negative); Urine Ketone Negative (Negative); Urine Leukocyte Negative (Negative); Urine Nitrite Negative (Negative); Urine Occult Blood 3+ (Negative); Urine Specific Gravity 1.025 (<1.030); Urine Urobilinogen Negative (Neg - 1+)
[2023-07-12 21:36] LABS: Urine Squamous Cell 0-2 /LPF (Few)
[2023-07-12 21:38] LABS: Urine White Cell 0-2 /HPF (0-5)
[2023-07-12 21:39] LABS: Urine Bacteria Few (Negative); Urine Mucus Many
[2023-07-12 21:49] LABS: Troponin I < 0.012 ng/ml
== END 2023-07-12 22:56 | disposition home or self-care (01) ==
LOC: EMR 17:43
PROVIDERS: Clinical Nurse Specialist Family Health; EMERGENCY PHYSICIAN Emergency Medicine; FAMILY PHYSICIAN Internal Medicine
DX: R55 Syncope and collapse (principal); R07.89 Other chest pain; R10.30 Lower abdominal pain, unspecified; E86.0 Dehydration; I10 Essential (primary) hypertension; Z79.82 Long term (current) use of aspirin; K21.9 Gastro-esophageal reflux disease without esophagitis; E78.00 Pure hypercholesterolemia, unspecified; F41.9 Anxiety disorder, unspecified; J45.909 Unspecified asthma, uncomplicated; Z87.442 Personal history of urinary calculi; K57.92 Diverticulitis of intestine, part unspecified, without perforation or abscess without bleeding; Z98.1 Arthrodesis status; Z87.891 Personal history of nicotine dependence; Z87.820 Personal history of traumatic brain injury
CPT/HCPCS: 99284; 96360; 80053; 81003; 81015; 84484; 85025; 93005

== ENCOUNTER 2023-07-18 14:39 | Inpatient (IN) | payer MEDICARE, OTHER, SELFPAY ==
[2023-07-18] VITALS (14 sets, daily range): BP systolic 76–132; BP diastolic 68–97
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
[2023-07-18 09:09] LABS: % Basophils 1.2 % (0-2); % Eosinophils 4.3 % (0-6); % Immature Granulocytes 0.1 % (0-0.5); % Lymphocytes 24.4 % (20.5-51.1); % Monocytes 12.8 % (1.7-9.3); % Neutrophils 57.2 % (42.2-75.2); Absolute Basophils 0.1 10^3/uL (0-0.2); Absolute Eosinophils 0.3 10^3/uL (0-0.7); Absolute Lymphocytes 1.6 10^3/uL (1.2-3.4); Absolute Monocytes 0.9 10^3/uL (0.1-0.6); Absolute Neutrophils 3.8 10^3/uL (1.4-6.5); Hematocrit 39.8 % (39.0-52.0); Hemoglobin 13.8 g/dL (13.0-18.0); Mean Corp Hgb Conc. 34.7 g/dL (33.0-37.0); Mean Corpuscular Hgb 30.1 pg (27.0-31.0); Mean Corpuscular Volume 86.9 fL (80.0-94.0); Mean Platelet Volume 9.5 fL (7.4-10.4); Nucleated Red Blood Cells % 0 % (-); Platelet Count 245 10^3/uL (130-400); Red Blood Cell Count 4.58 10^6/uL (4.70-6.10); White Blood Cell Count 6.7 10^3/uL (4.8-10.8)
[2023-07-18 09:23] LABS: ALT (SGPT) 20 U/L (0-50); AST (SGOT) 24 U/L (17-59); Albumin 3.9 g/dl (3.5-5.0); Alkaline Phosphatase 101 U/L (38-126); Blood Urea Nitrogen 22 mg/dl (9-20); Calcium 9.3 mg/dl (8.4-10.2); Carbon Dioxide 25 mmol/L (22-30); Chloride 103 mmol/L (98-107); Glucose 112 mg/dl (70-99); Potassium 4.2 mmol/L (3.5-5.1); Sodium 136 mmol/L (135-145); Total Bilirubin 0.6 mg/dl (0.2-1.3); Total Protein 6.9 g/dl (6.3-8.2); eGFR > 60.00
[2023-07-18 09:34] LABS: Troponin I < 0.012 ng/ml
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
--- NOTE | 2023-07-18 18:31 | W.PN.UPDATE ---
Update Note
Progress Note Update
This note serves as an addendum to the H&P by Ena Mari PA-C, on July 18, 2023.
History of Presenting Illness
68 y/o male with past medical history of recent mitral valve repair (in May 2023), hypertension, hyperlipidemia who presented with shortness of breath, and bulging of right chest. Patient notes last night he was lying in bed when he laughed and
developed acute bulge in the right chest associated with mild shortness of breath. He states he pushed on the area and felt the 'liquid' go back in his chest. He awoke this morning and symptoms persistent prompting him to come to the emergency
department for evaluation. He denied any chest pain.
Vital Signs -- oxygen saturating in the 90s on 2 liters but otherwise vital signs stable
Physical Exam
General: Comfortable and Conversant
HEENT: Anicteric and Moist mucous membranes
Respiratory: Clear and Other (Decreased breath sounds on right; Pressure dressing place to right chest)
Cardiac: S1/S2 and Regular Rhythm
GI: Soft and Non Tender. Positive bowel sounds.
Musculoskeletal: No cyanosis. No edema.
Skin: Warm and Dry
Neuro: Awake, Oriented and Nonfocal/grossly intact
Psych: Calm
Assessment/Plan
Right Pneumothorax
-Consult CT Surgery
-Consult IR for chest tube placement
-Continue supplemental oxygen
-Encourage use of incentive spirometer
Recent Right Pleural Effusion s/p Thoracentesis on June 12
-Continue Lasix
-Monitor Is&Os and Daily Weights
Essential Hypertension
-Continue amlodipine and Metoprolol
-Unclear reasoning as why patient is on both atenolol and metoprolol - Hold atenolol for now
Spinal Stenosis
-Continu Duloxetine
BPH
-continue alfuzosin
GERD
-Continue Protonix
Environmental Allergies
-Continue Montelukast
DVT Proph: Heparin subq
Code Status: Full Code
--- NOTE | 2023-07-18 20:04 | PTCARENOTE ---
Rn flow credit assessment analyst- Patient states that he had a black tarry stool.
[2023-07-18] MEDS: HEPARIN 5000 UNITS SC (20:16)
[2023-07-18] MEDS: TYLENOL 650 MG PO (21:32)
[2023-07-19] VITALS (8 sets, daily range): BP systolic 122–143; BP diastolic 74–96; PULSE 83–86; O2SAT 95; BMI 30.6
[2023-07-19] MEDS: TYLENOL 650 MG PO ×2 (06:15→11:50)
[2023-07-19 07:06] LABS: Hematocrit 42.8 % (39.0-52.0); Hemoglobin 14.1 g/dL (13.0-18.0); Mean Corp Hgb Conc. 32.9 g/dL (33.0-37.0); Mean Corpuscular Hgb 30.2 pg (27.0-31.0); Mean Corpuscular Volume 91.6 fL (80.0-94.0); Platelet Count 239 10^3/uL (130-400); Red Blood Cell Count 4.67 10^6/uL (4.70-6.10); White Blood Cell Count 5.7 10^3/uL (4.8-10.8)
[2023-07-19 07:31] LABS: Blood Urea Nitrogen 21 mg/dl (9-20); Calcium 9.4 mg/dl (8.4-10.2); Carbon Dioxide 25 mmol/L (22-30); Chloride 104 mmol/L (98-107); Estimated Creatinine Clearance 66 ml/min; Glucose 105 mg/dl (70-99); Potassium 4.8 mmol/L (3.5-5.1); Sodium 138 mmol/L (135-145); eGFR > 60.00
[2023-07-19] MEDS: NORVASC 5 MG PO (07:41)
[2023-07-19] MEDS: FLOMAX 0.400000000000000022 MG PO (07:41)
[2023-07-19] MEDS: CYMBALTA DELAYED RELEASE 60 MG PO (07:41)
[2023-07-19] MEDS: SINGULAIR 10 MG PO (07:44)
[2023-07-19] MEDS: LIPITOR 20 MG PO (07:44)
[2023-07-19] MEDS: PROTONIX 40 MG PO (07:44)
[2023-07-19] MEDS: TOPROL XL 25 MG PO (07:45)
[2023-07-19] MEDS: HEPARIN 5000 UNITS SC ×2 (07:45→19:31)
[2023-07-19] MEDS: ASPIR LOW (ENTERIC COATED) 81 MG PO (07:45)
[2023-07-19] MEDS: LASIX 20 MG PO (07:45)
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
--- NOTE | 2023-07-19 11:29 | CM ---
Patient seen in chair, reports he is having back pain, asking if he can move back to bed, CM made nurse aware. Patient reports he resides alone in a one story home, no steps to enter. Patient reports he does have family who resides on the property.
Patient denies DME, reports VN in the past years ago, denies SNF. Patient confirms PCP Dr. Rodriguez, pharmacy [facility], confirms prescription coverage. Patient denies food insecurities. PT/OT ordered. CM will continue to follow for discharge
planning needs.
Plan; home no needs vs VN, watch for PT/OT recommendations.
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
[2023-07-19] MEDS: AMBIEN 5 MG PO (22:06)
[2023-07-20] VITALS (7 sets, daily range): BP systolic 117–149; BP diastolic 47–100; PULSE 87; O2SAT 93; BMI 30.9
[2023-07-20] MEDS: FLEXERIL 5 MG PO (00:20)
[2023-07-20] MEDS: TYLENOL 650 MG PO (03:20)
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
[2023-07-20] MEDS: NORVASC 5 MG PO (07:37)
[2023-07-20] MEDS: HEPARIN 5000 UNITS SC ×2 (07:37→19:56)
[2023-07-20] MEDS: LIPITOR 20 MG PO (07:37)
[2023-07-20] MEDS: CYMBALTA DELAYED RELEASE 60 MG PO (07:38)
[2023-07-20] MEDS: ASPIR LOW (ENTERIC COATED) 81 MG PO (07:38)
[2023-07-20] MEDS: TENORMIN 25 MG PO (07:38)
[2023-07-20] MEDS: SINGULAIR 10 MG PO (07:38)
[2023-07-20] MEDS: LASIX 20 MG PO (07:38)
[2023-07-20] MEDS: FLOMAX 0.400000000000000022 MG PO (07:39)
[2023-07-20] MEDS: PROTONIX 40 MG PO (07:39)
[2023-07-20] MEDS: TORADOL 15 MG IV (09:20)
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
--- NOTE | 2023-07-20 11:35 | W.PN.UPDATE ---
Update Note
Progress Note Update
Ct scan remains stable and did not show ptx. Spoke with Dr. Alanis. Will preform clamp trial and repeat CXR in 3 hours. If not PTX is seen will DC CT.
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
--- NOTE | 2023-07-20 18:52 | W.PN.UPDATE ---
Update Note
Progress Note Update
Patient CT removed without issue. Patient can be discharged with follow up outpatient CT-Chest in one week. Keep dressing on for 24 hours and OK to shower.
[2023-07-20] MEDS: AMBIEN 5 MG PO (21:31)
--- NOTE | 2023-07-21 00:26 | PTCARENOTE ---
07/20/2023 1900 patient refusing telemetry pack. Education provided. Neville BACK END ARCHITECT made aware.
[2023-07-21] MEDS: OCEAN, SALINE MIST 2 SPRAYS NASAL (00:59)
[2023-07-21 05:32] VITALS: BMI 30.5
[2023-07-21 07:00] VITALS: BP 142/105
[2023-07-21] MEDS: LASIX 20 MG PO (08:53)
[2023-07-21] MEDS: NORVASC 5 MG PO (08:53)
[2023-07-21] MEDS: FLOMAX 0.400000000000000022 MG PO (08:53)
[2023-07-21] MEDS: PROTONIX 40 MG PO (08:53)
[2023-07-21] MEDS: CYMBALTA DELAYED RELEASE 60 MG PO (08:53)
[2023-07-21] MEDS: ASPIR LOW (ENTERIC COATED) 81 MG PO (08:53)
[2023-07-21] MEDS: SINGULAIR 10 MG PO (08:53)
[2023-07-21] MEDS: LIPITOR 20 MG PO (08:53)
[2023-07-21] MEDS: TENORMIN 25 MG PO (08:53)
[2023-07-21] MEDS: HEPARIN 5000 UNITS SC (08:53)
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
--- NOTE | 2023-07-21 10:18 | W.PN.UPDATE ---
Addendum entered and electronically signed by ROSLYN Nathan 08/05/23 10:02:
CDI QUERY RESPONSE
Subcutaneous emphysema is an expected occurrence and is not a complication of surgery
Original Note:
Update Note
Progress Note Update
No pneumothorax noted on morning chest x-ray status post chest tube removal on 07/20/2023. Patient is stable from cardiothoracic standpoint for discharge
[2023-07-21 11:00] VITALS: BP 131/86
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
--- NOTE | 2023-07-21 11:55 | CM ---
CM reviewed chart, spoke with nurse, patient impatient to leave and was going to leave AMA. Patient left before CM met with patient.
Plan; home no needs.
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
--- NOTE | 2023-08-01 09:01 | PN.CDI ---
CDI
- -
CDI:
Physician Documentation Request
Admit Date: 07/18/23 14:39
Dear Doctor Annabelle,
CT surgery consultation list patient history of severe mitral valve insufficiency S/P radical mitral valve repair by Dr. Alanis on 05/17/2023
Addendum states 'Not 'flail chest' change to Subcutaneous Emphysema isolated to previous thoracotomy site'
Please clarify the following:
Subcutaneous emphysema is a complication of the surgery
Subcutaneous emphysema is unexpected but is NOT a complication of the surgery
Subcutaneous emphysema is an expected occurrence and is not a complication of surgery
Subcutaneous emphysema is inherent to/unavoidable during the surgery and is not a complication
Other
Use of terms such as suspected, likely, concern for, or probable (associated with a specific diagnosis that is being evaluated, monitored, or treated as if it exists) are acceptable and can be coded in the inpatient setting, when documented at the
time of discharge.
Thank you,
Christelle Pendleton RN, BSN
CDI Specialist
tiger text
Please use your independent medical judgment in providing your response.
== END 2023-07-21 12:57 | disposition home or self-care (01) | DRG 200 ==
LOC: 4 WEST ACU 14:39
PROVIDERS: Emergency Medicine; Physician Assistant Medical; Radiology Vascular & Interventional Radiology; ADMITTING PHYSICIAN Hospitalist; CONSULT PHYSICIAN Internal Medicine Critical Care Medicine; CONSULT PHYSICIAN Thoracic Surgery (Cardiothoracic Vascular Surgery); EMERGENCY PHYSICIAN Emergency Medicine; FAMILY PHYSICIAN Internal Medicine
PROC: 0W9930Z Drainage of Right Pleural Cavity with Drainage Device, Percutaneous Approach (ICD-10-PCS; 2023-07-18)
DX: J93.83 Other pneumothorax (principal); J90 Pleural effusion, not elsewhere classified; S22.31XA Fracture of one rib, right side, initial encounter for closed fracture; I10 Essential (primary) hypertension; I34.0 Nonrheumatic mitral (valve) insufficiency; J44.89 Other specified chronic obstructive pulmonary disease; E66.9 Obesity, unspecified; Z68.30 Body mass index [BMI] 30.0-30.9, adult; M48.00 Spinal stenosis, site unspecified; N40.0 Benign prostatic hyperplasia without lower urinary tract symptoms; E78.5 Hyperlipidemia, unspecified; K21.9 Gastro-esophageal reflux disease without esophagitis; J30.2 Other seasonal allergic rhinitis; F41.9 Anxiety disorder, unspecified; R73.9 Hyperglycemia, unspecified; Z79.82 Long term (current) use of aspirin; Z79.899 Other long term (current) drug therapy; Z87.820 Personal history of traumatic brain injury; Z87.891 Personal history of nicotine dependence; Z98.1 Arthrodesis status; Z86.79 Personal history of other diseases of the circulatory system; Z87.19 Personal history of other diseases of the digestive system; Z86.19 Personal history of other infectious and parasitic diseases
CPT/HCPCS: 32557; 71045; 71046; 71250; 71275; 80048; 80053; 84484; 85025; 85027; 93005; 97116; 97162; 97166; 97530; 99285; Q9967

== ENCOUNTER 2023-12-25 17:17 | Emergency (ER) | payer MEDICARE, OTHER, SELFPAY ==
[2023-12-25 17:23] VITALS: BP 151/93
[2023-12-25 17:36] VITALS: BP 137/92
[2023-12-25 17:42] VITALS: BMI 32.4
[2023-12-25 17:55] LABS: % Basophils 1.2 % (0-2); % Eosinophils 5.9 % (0-6); % Immature Granulocytes 0.3 % (0-0.5); % Lymphocytes 27.1 % (20.5-51.1); % Monocytes 10.9 % (1.7-9.3); % Neutrophils 54.6 % (42.2-75.2); Absolute Basophils 0.1 10^3/uL (0-0.2); Absolute Eosinophils 0.4 10^3/uL (0-0.7); Absolute Monocytes 0.8 10^3/uL (0.1-0.6); Absolute Neutrophils 3.9 10^3/uL (1.4-6.5); Hematocrit 43.1 % (39.0-52.0); Hemoglobin 15.6 g/dL (13.0-18.0); Mean Corp Hgb Conc. 36.2 g/dL (33.0-37.0); Mean Corpuscular Hgb 32.4 pg (27.0-31.0); Mean Corpuscular Volume 89.6 fL (80.0-94.0); Mean Platelet Volume 9.2 fL (7.4-10.4); Nucleated Red Blood Cells % 0 % (-); Platelet Count 263 10^3/uL (130-400); Red Blood Cell Count 4.81 10^6/uL (4.70-6.10); Red Cell Dist. Width 13.3 % (11.5-14.5); White Blood Cell Count 7.2 10^3/uL (4.8-10.8)
[2023-12-25 18:00] VITALS: BP 126/93
[2023-12-25 18:14] LABS: ALT (SGPT) 27 U/L (0-50); AST (SGOT) 25 U/L (17-59); Albumin 4.4 g/dl (3.5-5.0); Alkaline Phosphatase 90 U/L (38-126); Blood Urea Nitrogen 16 mg/dl (9-20); Calcium 9.5 mg/dl (8.4-10.2); Carbon Dioxide 25 mmol/L (22-30); Chloride 103 mmol/L (98-107); Estimated Creatinine Clearance 68 ml/min; Glucose 136 mg/dl (70-99); Potassium 4.2 mmol/L (3.5-5.1); Sodium 141 mmol/L (135-145); Total Bilirubin 0.5 mg/dl (0.2-1.3); Total Protein 7.2 g/dl (6.3-8.2); eGFR > 60.00
[2023-12-25 18:16] LABS: Troponin I < 0.012 ng/ml
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
[2023-12-25 19:00] VITALS: BP 128/92
[2023-12-25 20:00] VITALS: BP 130/94
[2023-12-25 21:00] VITALS: BP 124/96
[2023-12-25 21:03] LABS: Troponin I < 0.012 ng/ml
== END 2023-12-25 21:29 | disposition home or self-care (01) ==
LOC: EMR 17:17
PROVIDERS: EMERGENCY PHYSICIAN Emergency Medicine; FAMILY PHYSICIAN Internal Medicine
DX: R07.9 Chest pain, unspecified (principal); I25.10 Atherosclerotic heart disease of native coronary artery without angina pectoris; E78.00 Pure hypercholesterolemia, unspecified; I10 Essential (primary) hypertension; J45.909 Unspecified asthma, uncomplicated; K21.9 Gastro-esophageal reflux disease without esophagitis; Z87.891 Personal history of nicotine dependence
CPT/HCPCS: 99284; 80053; 84484; 85025; 93005

== ENCOUNTER → 2023-12-30 15:43 | Outpatient (REF) | payer MEDICARE, OTHER, SELFPAY | LOC: RAD 15:43 | PROVIDERS: ATTENDING PHYSICIAN Internal Medicine; FAMILY PHYSICIAN Internal Medicine | DX: R06.09 Other forms of dyspnea (principal) | CPT/HCPCS: 71046 ==

== ENCOUNTER → 2024-01-14 07:10 | Outpatient (REF) | payer MEDICARE, OTHER, SELFPAY | LOC: RCS 07:10 | PROVIDERS: ATTENDING PHYSICIAN Thoracic Surgery (Cardiothoracic Vascular Surgery); PRIMARYCARE PHYSICIAN Internal Medicine | DX: Z98.890 Other specified postprocedural states (principal) | CPT/HCPCS: 93306 ==

== ENCOUNTER 2024-02-15 08:08 | Emergency (ER) | payer MEDICARE, OTHER, SELFPAY ==
[2024-02-15 08:23] VITALS: BP 128/79
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
[2024-02-15 09:14] LABS: % Basophils 1.3 % (0-2); % Immature Granulocytes 0.4 % (0-0.5); % Lymphocytes 24.9 % (20.5-51.1); % Monocytes 11.3 % (1.7-9.3); % Neutrophils 56.1 % (42.2-75.2); Absolute Basophils 0.1 10^3/uL (0-0.2); Absolute Eosinophils 0.5 10^3/uL (0-0.7); Absolute Lymphocytes 1.9 10^3/uL (1.2-3.4); Absolute Monocytes 0.9 10^3/uL (0.1-0.6); Absolute Neutrophils 4.4 10^3/uL (1.4-6.5); Hematocrit 42.5 % (39.0-52.0); Hemoglobin 15.1 g/dL (13.0-18.0); Mean Corp Hgb Conc. 35.5 g/dL (33.0-37.0); Mean Corpuscular Hgb 32.1 pg (27.0-31.0); Mean Corpuscular Volume 90.4 fL (80.0-94.0); Mean Platelet Volume 9.4 fL (7.4-10.4); Nucleated Red Blood Cells % 0 % (-); Platelet Count 234 10^3/uL (130-400); Red Cell Dist. Width 13.5 % (11.5-14.5); White Blood Cell Count 7.8 10^3/uL (4.8-10.8)
[2024-02-15 09:20] LABS: ALT (SGPT) 32 U/L (0-50); AST (SGOT) 29 U/L (17-59); Albumin 4.3 g/dl (3.5-5.0); Alkaline Phosphatase 106 U/L (38-126); Blood Urea Nitrogen 25 mg/dl (9-20); Calcium 9.6 mg/dl (8.4-10.2); Carbon Dioxide 23 mmol/L (22-30); Chloride 102 mmol/L (98-107); Glucose 121 mg/dl (70-99); Potassium 4.3 mmol/L (3.5-5.1); Sodium 137 mmol/L (135-145); Total Bilirubin 0.8 mg/dl (0.2-1.3); Total Protein 7.2 g/dl (6.3-8.2); eGFR 55.43
[2024-02-15 09:30] VITALS: BP 108/79
[2024-02-15 09:32] LABS: NT-proBNP 69.3 pg/ml; Troponin I < 0.012 ng/ml
[2024-02-15] MEDS: NSS 1000 IV (09:34)
[2024-02-15 10:00] VITALS: BP 110/77
[2024-02-15 10:06] VITALS: BP 110/77
[2024-02-15 10:12] LABS: D-Dimer < 0.27 ug/mlFEU (0.00-0.50)
[2024-02-15 10:22] LABS: TSH Reflex To Free T4 1.74 uIU/ml (0.47-4.68)
[2024-02-15 11:38] VITALS: BP 120/77
[2024-02-15 12:00] VITALS: BP 120/77
[2024-02-15 12:12] LABS: Troponin I < 0.012 ng/ml
== END 2024-02-15 13:00 | disposition home or self-care (01) ==
LOC: EMR 08:08
PROVIDERS: Registered Nurse; EMERGENCY PHYSICIAN Emergency Medicine; FAMILY PHYSICIAN Internal Medicine
DX: I47.9 Paroxysmal tachycardia, unspecified (principal); R06.02 Shortness of breath; R42 Dizziness and giddiness; R19.7 Diarrhea, unspecified; I10 Essential (primary) hypertension; E78.00 Pure hypercholesterolemia, unspecified; K57.92 Diverticulitis of intestine, part unspecified, without perforation or abscess without bleeding; K21.9 Gastro-esophageal reflux disease without esophagitis; F41.9 Anxiety disorder, unspecified; F32.A Depression, unspecified; N40.0 Benign prostatic hyperplasia without lower urinary tract symptoms; J45.909 Unspecified asthma, uncomplicated; I25.10 Atherosclerotic heart disease of native coronary artery without angina pectoris; R01.1 Cardiac murmur, unspecified; I34.0 Nonrheumatic mitral (valve) insufficiency; K57.90 Diverticulosis of intestine, part unspecified, without perforation or abscess without bleeding; M48.00 Spinal stenosis, site unspecified; Z79.82 Long term (current) use of aspirin; Z95.1 Presence of aortocoronary bypass graft; Z87.891 Personal history of nicotine dependence; Z87.442 Personal history of urinary calculi; Z87.820 Personal history of traumatic brain injury; Z98.1 Arthrodesis status
CPT/HCPCS: 99284; 96360; 71046; 80053; 83880; 84443; 84484; 85025; 85379; 93005

== ENCOUNTER 2024-06-12 19:13 | Emergency (ER) | payer MEDICARE, OTHER, SELFPAY ==
[2024-06-12 19:19] VITALS: BP 116/87
[2024-06-12 19:52] LABS: % Basophils 1.6 % (0-2); % Eosinophils 3.8 % (0-6); % Immature Granulocytes 0.3 % (0-0.5); % Lymphocytes 33.7 % (20.5-51.1); % Monocytes 12.4 % (1.7-9.3); % Neutrophils 48.2 % (42.2-75.2); Absolute Basophils 0.2 10^3/uL (0-0.2); Absolute Eosinophils 0.4 10^3/uL (0-0.7); Absolute Lymphocytes 3.1 10^3/uL (1.2-3.4); Absolute Monocytes 1.1 10^3/uL (0.1-0.6); Absolute Neutrophils 4.4 10^3/uL (1.4-6.5); Hematocrit 45.5 % (39.0-52.0); Hemoglobin 16.3 g/dL (13.0-18.0); Mean Corp Hgb Conc. 35.8 g/dL (33.0-37.0); Mean Corpuscular Hgb 32.7 pg (27.0-31.0); Mean Corpuscular Volume 91.2 fL (80.0-94.0); Mean Platelet Volume 9.7 fL (7.4-10.4); Nucleated Red Blood Cells % 0 % (-); Platelet Count 308 10^3/uL (130-400); Red Blood Cell Count 4.99 10^6/uL (4.70-6.10); Red Cell Dist. Width 13.3 % (11.5-14.5); White Blood Cell Count 9.1 10^3/uL (4.8-10.8)
[2024-06-12 19:59] LABS: INR 0.89; PT 12.4 Sec (11.4-14.6)
[2024-06-12 20:05] LABS: ALT (SGPT) 27 U/L (0-50); AST (SGOT) 23 U/L (17-59); Albumin 4.4 g/dl (3.5-5.0); Alkaline Phosphatase 107 U/L (38-126); Blood Urea Nitrogen 29 mg/dl (9-20); Calcium 9.8 mg/dl (8.4-10.2); Carbon Dioxide 26 mmol/L (22-30); Chloride 105 mmol/L (98-107); Glucose 128 mg/dl (70-99); Potassium 4.3 mmol/L (3.5-5.1); Sodium 142 mmol/L (135-145); Total Bilirubin 0.6 mg/dl (0.2-1.3); Total Protein 7.4 g/dl (6.3-8.2); eGFR 46.93
[2024-06-12 20:14] LABS: Troponin I < 0.012 ng/ml
== END 2024-06-12 21:50 | disposition left against medical advice (07) ==
LOC: EMR 19:13
PROVIDERS: EMERGENCY PHYSICIAN Emergency Medicine
DX: R07.9 Chest pain, unspecified (principal); Z53.21 Procedure and treatment not carried out due to patient leaving prior to being seen by health care provider
CPT/HCPCS: 80053; 84484; 85025; 85610; 93005

== ENCOUNTER 2024-08-15 12:26 | Emergency (ER) | payer MEDICARE, OTHER, SELFPAY ==
[2024-08-15 12:46] VITALS: BP 115/84
[2024-08-15 12:49] LABS: Hematocrit 45.4 % (39.0-52.0); Hemoglobin 16.0 g/dL (13.0-18.0); Mean Corp Hgb Conc. 35.2 g/dL (33.0-37.0); Mean Corpuscular Volume 91.5 fL (80.0-94.0); Nucleated Red Blood Cells % 0 % (-); Platelet Count 233 10^3/uL (130-400); Red Cell Dist. Width 13.0 % (11.5-14.5)
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
[2024-08-15 13:00] VITALS: BP 107/63
[2024-08-15 13:06] VITALS: BP 97/69
[2024-08-15] MEDS: TORADOL 15 MG IV (13:06)
[2024-08-15 13:10] LABS: ALT (SGPT) 28 U/L (0-50); AST (SGOT) 22 U/L (17-59); Albumin 4.3 g/dl (3.5-5.0); Alkaline Phosphatase 72 U/L (38-126); Blood Urea Nitrogen 19 mg/dl (9-20); Calcium 9.3 mg/dl (8.4-10.2); Carbon Dioxide 22 mmol/L (22-30); Chloride 110 mmol/L (98-107); Glucose 127 mg/dl (70-99); Potassium 4.4 mmol/L (3.5-5.1); Sodium 139 mmol/L (135-145); Total Protein 7.4 g/dl (6.3-8.2); eGFR > 60.00
[2024-08-15 13:16] LABS: Troponin I < 0.012 ng/ml
[2024-08-15 13:31] LABS: D-Dimer 0.66 ug/mlFEU (0.00-0.50)
[2024-08-15 14:48] VITALS: BP 114/84
[2024-08-15 15:00] VITALS: BP 122/80
[2024-08-15 16:00] VITALS: BP 132/80
[2024-08-15 16:44] LABS: Troponin I < 0.012 ng/ml
== END 2024-08-15 17:03 | disposition home or self-care (01) ==
LOC: EMR 12:26
PROVIDERS: Emergency Medicine; EMERGENCY PHYSICIAN Student in an Organized Health Care Education/Training Program; FAMILY PHYSICIAN Internal Medicine
DX: R07.89 Other chest pain (principal); R06.02 Shortness of breath; K21.9 Gastro-esophageal reflux disease without esophagitis; I25.10 Atherosclerotic heart disease of native coronary artery without angina pectoris; I10 Essential (primary) hypertension; E78.00 Pure hypercholesterolemia, unspecified; J45.909 Unspecified asthma, uncomplicated; F41.9 Anxiety disorder, unspecified; K57.92 Diverticulitis of intestine, part unspecified, without perforation or abscess without bleeding; Z79.82 Long term (current) use of aspirin; Z87.442 Personal history of urinary calculi; Z87.820 Personal history of traumatic brain injury; Z87.891 Personal history of nicotine dependence; Z98.1 Arthrodesis status
CPT/HCPCS: 99285; 96374; 71046; 80053; 84484; 85025; 85379; 93005